=== PATIENT | female | born 1965 | race Hispanic/Latino ===

== ENCOUNTER 2017-02-28 11:44 | Inpatient (IN) | payer MEDICAID, OTHER ==
[2017-02-28] MEDS ORDERED: Lidocaine 2% Inj (20ml) ONE (11:59)
[2017-02-28] MEDS ORDERED: Eptifibatide 0.75 mg/ml 100 ML IV ONE ×2 (11:59→12:16)
[2017-02-28] MEDS ORDERED: Eptifibatide 20 mg/10mL Inj IVP ONE ×2 (11:59→12:18)
[2017-02-28] MEDS ORDERED: Nitroglycerin 50mg in D5W 250 ML IV ONE (12:01)
[2017-02-28] MEDS ORDERED: Phenylephrine 10 mg/ml Inj ONE (12:01)
[2017-02-28] MEDS ORDERED: Iohexol 350mgl/ml 50 ML ONE (12:01)
[2017-02-28] MEDS ORDERED: Iodixanol 320 MG/ML 200 ML BOTTLE IV ONE (12:01)
--- NOTE | 2017-02-28 12:04 | ED PDOC ---
Arrival/HPI - General Chief Complaint: Chest Pain Time Seen by Provider: 02/28/17 12:02 Historian: Patient - History of Present Illness Narrative History of Present Illness (Text): 02/28/17 12:02 51 year old female smoker with a past medical history that includes diabetes presents to the emergency department with one day duration of chest pain. No ripping or tearing sensation or radiation to the back. Denies any shortness of breath with her symptoms. PMD: None Time/Duration: 24 hours Symptom Onset: Sudden Symptom Course: Unchanged Modifying Factors (Text): None Associated Symptoms (Text): None Past Medical History - Provider Review Nursing Documentation Reviewed: Yes - Infectious Disease Hx of Infectious Diseases: None - Tetanus Immunization Tetanus Immunization: Unknown - Past Medical History Past Medical History: No Previous - Cardiac Hx Cardiac Disorders: No (pt denies) - Pulmonary Hx Respiratory Disorders: No - Neurological Hx Neurological Disorder: No - HEENT Hx HEENT Disorder: No - Renal Hx Renal Disorder: No - Endocrine/Metabolic Hx Endocrine Disorders: Yes Hx Diabetes Mellitus Type 2: Yes - Hematological/Oncological Hx Blood Disorders: No - Integumentary Hx Dermatological Disorder: No - Musculoskeletal/Rheumatological Hx Musculoskeletal Disorders: No Hx Falls: No - Gastrointestinal Hx Gastrointestinal Disorders: No - Genitourinary/Gynecological Hx Genitourinary Disorders: No - Psychiatric Hx Psychophysiologic Disorder: No Hx Anxiety: No Hx Depression: No Hx Emotional Abuse: No Hx Physical Abuse: No Hx Substance Use: No - Past Surgical History Past Surgical History: No Previous - Suicidal Assessment Feels Threatened In Home Enviroment: No Family/Social History - Physician Review Nursing Documentation Reviewed: Yes Family/Social History: Unknown Family HX Smoking Status: Light Smoker < 10 Cigarettes Daily Hx Alcohol Use: No Hx Substance Use: No Allergies/Home Meds Allergies/Adverse Reactions: Allergies No Known Allergies Allergy (Verified 02/28/17 12:00) Home Medications: Home Meds Medication Instructions Recorded Confirmed No Known Home Med 02/28/17 02/28/17 Review of Systems - Physician Review All systems were reviewed & negative as marked: Yes Physical Exam - Physical Exam Narrative Physical Exam (Text): - Review of Systems Constitutional: Normal. absent: Fatigue, Weight Change, Fevers Eyes: Normal ENT: Normal Respiratory: Normal absent: SOB, Cough, Sputum Cardiovascular: Chest pain absent: Palpitations, Syncope Gastrointestinal: Normal absent: Abdominal pain, Diarrhea, Nausea, Vomiting Genitourinary: Normal. absent: Dysuria, Frequency, Hematuria Musculoskeletal: Normal. absent: Arthralgias, Back Pain, Neck Pain Skin: Normal Neurological: Normal absent: Focal Weakness Endocrine: Normal Hemo/Lymphatic: Normal Psychiatric: Normal - Physical exam Patient appears age appropriate, speaking full sentences without difficulty - Systems Exam Head: Present: Atraumatic, Normocephalic Pupils: Present: PERRL Extraocular Muscles: Present: EOMI Conjunctiva: Present: Normal Mouth: Present: Moist Mucous Membranes Neck: Present: Normal Range of Motion. No: MIDLINE TENDERNESS, Paraspinal Tenderness Respiratory/Chest: Present: Clear to Auscultation, Good Air Exchange. No: Respiratory Distress, Accessory Muscle Use, Tachypneic Cardiovascular: Present: Regular Rate and Rhythm, Normal S1, S2, Peripheral Pulses Present. No: Murmurs Abdomen: Present: Normal Bowel Sounds, No: Tenderness, Peritoneal Signs, Rebound, Guarding, Distention Back: Present: Normal Inspection. No: Midline Tenderness, Paraspinal Tenderness Upper Extremity: Present: Normal Inspection. No: Cyanosis, Edema Lower Extremity: Present: Normal Inspection. No: Edema Neurological: Present: GCS=15, Speech Normal, cranial nerves II through XII fully intact with no cerebellar abnormality, neuro-sensory fully intact. No focal neurological deficits. Skin: Present: Warm, Dry, Normal Color. No: Rashes Lymphatic: Present: OX3, NI, NC Psychiatric: Present: Alert, Oriented x 3, Normal Insight, Normal Concentration Vital Signs Reviewed: Yes Vital Signs Temp Pulse Resp BP Pulse Ox 02/28/17 11:58 98 F 115 H 17 124/55 L 98 Temperature: Afebrile Blood Pressure: Normal Pulse: Tachycardic Respiratory Rate: Normal Appearance: Positive for: Well-Appearing, Non-Toxic, Comfortable Pain Distress: None Mental Status: Positive for: Alert and Oriented X 3 Medical Decision Making ED Course and Treatment: Impression: 51 year old female smoker with a history of diabetes presents with 1 day duration chest pain. Differential Diagnosis include but are not limited to: [place] Plan: -- EKG, Chest X-ray -- Labs -- Reassess and disposition Prior Visits: Notes and results from previous visits were reviewed. Patient last seen in the ED on 10/10/14 with left arm pain and discharged home. Progress Notes: EKG was done at 11:50, which shows sinus rhythm at [address] elevations in V1 and V2, q-waves, reciprocal changes in inferior leads, interpreted by me. EKG signed at 11:50. Code Heart called at 11:50. Case discussed with Dr. Hollis at 11:53 who states to administer Aspirin, Nitro, Heparin, Integrilin, Plavix Patient informed of diagnosis and plan. Case discussed with patient's daughter per her request. Patient states she has no PMD. Chest x-ray read by me shows no pneumothorax, no pneumonia, no cardiomegaly, no infiltrates. Case discussed with Dr. Desir who accepts patient to his service. - Critical Care Critical Care Minutes: 30 minutes - Lab Interpretations Lab Results: 02/28/17 11:56 02/28/17 11:56 Lab Results 02/28/17 11:56: WBC 9.1, RBC 5.25, Hgb 15.0, Hct 42.2, MCV 80.4, MCH 28.6, MCHC 35.5, RDW 14.1, Plt Count 249, MPV 9.8, PT 10.2, INR 0.94, APTT 26.9, Sodium 133 , Potassium 4.5, Chloride 96 L, Carbon Dioxide 29, Anion Gap 13, BUN 14, Creatinine 0.7, Est GFR ( Amer) > 60, Est GFR (Non-Af Amer) > 60, Random Glucose 403 H* D, Calcium 9.5, Total Bilirubin 0.7, AST 20, ALT 11, Alkaline Phosphatase 70, Lactate Dehydrogenase 337, Total Creatine Kinase 60, Troponin I 0.06, Total Protein 7.7, Albumin 4.2, Globulin 3.5, Albumin/Globulin Ratio 1.2, Triglycerides 477 H, Cholesterol 263 H, LDL Cholesterol Direct 149 H, HDL Cholesterol 40 - RAD Interpretation Radiology Orders: 02/28/17 11:56 CHEST ONE VIEW [RAD] Stat - EKG Interpretation Interpreted by ED Physician: Yes Type: 12 lead EKG - Medication Orders Current Medication Orders: Acetaminophen (Tylenol 325mg Tab) 650 mg PO Q4H PRN PRN Reason: FOR PAIN Alprazolam (Xanax) 0.25 mg PO BID PRN PRN Reason: Anxiety Stop: 03/07/17 14:10 Aspirin (Ecotrin) 81 mg PO DAILY [facility] Atorvastatin Calcium (Lipitor) 80 mg PO DIN [facility] Clopidogrel Bisulfate (Plavix) 75 mg PO DAILY [facility] Docusate Sodium (Colace) 100 mg PO BID [facility] Eptifibatide (Integrilin) 100 mls @ 12.383 mls/hr IV .Q8H5M [facility]; 2 MCG/KG/MIN PRN Reason: Protocol Stop: 03/01/17 06:00 Last Admin: 02/28/17 14:27 Dose: 12.383 MLS/HR eMAR Start Stop Document 02/28/17 14:27 [id number] (Rec: 02/28/17 14:28 [id number]) Intravenous Solution Start Date 02/28/17 Start Time 12:00 Sodium Chloride (Sodium Chloride 0.9%) 1,000 mls @ 100 mls/hr IV .Q10H [facility] Stop: 02/28/17 23:55 Last Admin: 02/28/17 14:28 Dose: 100 MLS/HR eMAR Start Stop Document 02/28/17 14:28 [email or web address] (Rec: 02/28/17 14:28 [id number]) Intravenous Solution Start Date 02/28/17 Start Time 14:28 End Date 02/28/17 Insulin Human Lispro (Humalog Med) 0 units SC ACHS [facility] PRN Reason: Protocol Metoprolol Tartrate (Lopressor) 25 mg PO BID [facility] Ramipril (Altace) 1.25 mg PO DAILY [facility] Zolpidem Tartrate (Ambien) 5 mg PO HS PRN PRN Reason: Insomnia Discontinued Medications Aspirin (Aspirin Chewable) Confirm Administered Dose 324 mg .ROUTE .STK-MED ONE Stop: 02/28/17 12:01 Clopidogrel Bisulfate (Plavix) Confirm Administered Dose 600 mg .ROUTE .STK-MED ONE Stop: 02/28/17 12:00 Eptifibatide (Integrilin Bolus) Confirm Administered Dose 20 mg IVP .STK-MED ONE Stop: 02/28/17 12:00 Eptifibatide (Integrilin Bolus) Confirm Administered Dose 20 mg IVP .STK-MED ONE Stop: 02/28/17 12:19 Fentanyl (Fentanyl) Confirm Administered Dose 100 mcg .ROUTE .STK-MED ONE Stop: 02/28/17 12:09 Heparin Sodium (Porcine) (Heparin) Confirm Administered Dose 5,000 units .ROUTE .STK-MED ONE Stop: 02/28/17 12:01 Heparin Sodium (Porcine) (Heparin) Confirm Administered Dose 10,000 units .ROUTE .STK-MED ONE Stop: 02/28/17 12:01 Eptifibatide (Integrilin) Confirm Administered Dose 100 mls @ ud IV .STK-MED ONE Stop: 02/28/17 12:00 Heparin Sodium (Porcine) (Heparin 1000 Units/500 Ml Ns) Confirm Administered Dose 1,500 mls @ ud IV .STK-MED ONE Stop: 02/28/17 12:01 Nitroglycerin/Dextrose (Nitroglycerin 50 Mg/250 Ml D5w) Confirm Administered Dose 250 mls @ ud IV .STK-MED ONE Stop: 02/28/17 12:02 Eptifibatide (Integrilin) Confirm Administered Dose 100 mls @ ud IV .STK-MED ONE Stop: 02/28/17 12:17 Heparin Sodium (Porcine) (Heparin 1000 Units/500 Ml Ns) Confirm Administered Dose 500 mls @ ud IV .STK-MED ONE Stop: 02/28/17 13:00 Iodixanol (Visipaque 320 Mg/Ml 200 Ml) Confirm Administered Dose 200 ml IV .STK- MED ONE Stop: 02/28/17 12:02 Iodixanol (Visipaque 320 Mg/Ml 100 Ml) Confirm Administered Dose 100 ml IV .STK- MED ONE Stop: 02/28/17 13:07 Iodixanol (Visipaque 320 Mg/Ml 100 Ml) Confirm Administered Dose 100 ml IV .STK- MED ONE Stop: 02/28/17 13:28 Iohexol (Omnipaque 350mg/Ml 50 Ml) Confirm Administered Dose 50 ml .ROUTE .STK- MED ONE Stop: 02/28/17 12:02 Lidocaine HCl (Lidocaine 2% 20ml Vial) Confirm Administered Dose 20 ml .ROUTE .STK-MED ONE Stop: 02/28/17 12:00 Midazolam HCl (Versed Inj) Confirm Administered Dose 2 mg .ROUTE .STK-MED ONE Stop: 02/28/17 12:09 Morphine Sulfate (Morphine) Confirm Administered Dose 2 mg .ROUTE .STK-MED ONE Stop: 02/28/17 12:39 Nitroglycerin (Nitrostat Sl Tab) Confirm Administered Dose 0.4 mg SL .STK-MED ONE Stop: 02/28/17 12:06 Phenylephrine HCl (Phenylephrine Inj) Confirm Administered Dose 10 mg .ROUTE .STK-MED ONE Stop: 02/28/17 12:02 Verapamil HCl (Verapamil Inj) Confirm Administered Dose 5 mg IVP .STK-MED ONE Stop: 02/28/17 12:25 - Scribe Statement The provider has reviewed the documentation as recorded by the Kal Peter Provider Scribe Attestation: All medical record entries made by the Kal were at my direction and personally dictated by me. I have reviewed the chart and agree that the record accurately reflects my personal performance of the history, physical exam, medical decision making, and the department course for this patient. I have also personally directed, reviewed, and agree with the discharge instructions and disposition. Disposition/Present on Arrival - Present on Arrival Any Indicators Present on Arrival: No History of DVT/PE: No History of Uncontrolled Diabetes: No Urinary Catheter: No History of Decub. Ulcer: No History Surgical Site Infection Following: None - Disposition Have Diagnosis and Disposition been Completed?: Yes Diagnosis: Acute myocardial infarction Disposition: HOSPITALIZED Disposition Time: 12:06 Patient Plan: Admission Condition: CRITICAL
[2017-02-28] MEDS ORDERED: Midazolam 2 MG/2 ML VIAL ONE (12:08)
[2017-02-28 12:09] LABS: HEMATOCRIT 42.2 % (36.0-48.0); MEAN CELL VOLUME 80.4 fL (80.0-105.0); MEAN CORPUSCULAR HEMOGLOBIN 28.6 pg (25.0-35.0); MEAN CORPUSCULAR HGB CONC 35.5 g/dl (31.0-37.0); MEAN PLATELET VOLUME 9.8 fl (7.0-11.0); RED CELL DISTRIBUTION WIDTH 14.1 % (11.5-14.5); WHITE BLOOD COUNT 9.1 10^3/ul (4.5-11.0)
[2017-02-28 12:18] LABS: ALB/GLOB RATIO 1.2 (1.1-1.8); ALKALINE PHOSPHATASE 70 U/L (38-133); ALT/SGPT 11 U/L (7-56); AST/SGOT 20 U/L (15-39); BILIRUBIN,TOTAL 0.7 mg/dL (0.2-1.3); BLOOD UREA NITROGEN 14 mg/dL (7-21); CALCIUM 9.5 mg/dL (8.4-10.5); CARBON DIOXIDE 29 mmol/L (21-33); CHLORIDE 96 mmol/L (98-107); CHOLESTEROL 263 mg/dL (130-200); GFR AFRICAN-AMERICAN > 60; POTASSIUM 4.5 mmol/L (3.6-5.0); SODIUM 133 mmol/L (132-148); TOTAL PROTEIN 7.7 g/dL (5.8-8.3)
--- NOTE | 2017-02-28 12:19 | RAD ---
PROCEDURE: CHEST RADIOGRAPH, 1 VIEW HISTORY: CODE STEMI COMPARISON: None available. FINDINGS: LUNGS: Clear. PLEURA: No pneumothorax or pleural fluid seen. CARDIOVASCULAR: Normal. OSSEOUS STRUCTURES: No significant abnormalities. VISUALIZED UPPER ABDOMEN: Normal. OTHER FINDINGS: None. IMPRESSION: No active disease.
[2017-02-28 12:20] LABS: INR 0.94 (0.93-1.08); PARTIAL THROMBOPLASTIN TIME 26.9 Seconds (23.7-30.8)
[2017-02-28 12:21] LABS: GLUCOSE,RANDOM 403 mg/dL (70-110)
[2017-02-28 12:29] LABS: TROPONIN I 0.06 ng/mL
--- NOTE | 2017-02-28 12:35 | CP.PCM.PN ---
Subjective - Date & Time of Evaluation Date of Evaluation: 02/28/17 Time of Evaluation: 11:51 - Subjective Subjective: Responded stat to "code heart in the ER" Patient was evaluated in the ER.,work up revealed Acute ND. After iinitial treatment in the ER,with cardiac moniter and O2 in place, she was transferred to the vascular lab by staff from the ER and myself. Case endorsed to lab head staff.Dr Hollis is in to do the procedure. Objective - Vital Signs/Intake and Output Vital Signs (last 24 hours): Temp Pulse Resp BP Pulse Ox 98 F 115 H 17 124/55 L 98 02/28/17 11:58 02/28/17 11:58 02/28/17 11:58 02/28/17 11:58 02/28/17 11:58 - Labs Labs: 02/28/17 11:56
[2017-02-28] MEDS ORDERED: Morphine 2 mg/ml ISec ONE (12:38)
[2017-02-28] MEDS ORDERED: Iodixanol 320 MG/ML 100 ML BOTTLE IV ONE ×2 (13:06→13:27)
[2017-02-28] MEDS ORDERED: Sodium Chloride 0.9% 1,000 ML IV SCH (14:15)
[2017-02-28 14:26] LABS: ADD MANUAL DIFF? NO
[2017-02-28] MEDS: Eptifibatide 0.75 mg/ml 100 ML IV SCH ×2 (14:27→19:00)
[2017-02-28 14:29] LABS: BASO # 0.03 K/mm3 (0.0-2.0); BASO % 0.3 % (0.0-3.0); EOS # 0.1 (0.0-0.7); EOS % 1.1 % (1.5-5.0); GRAN # 6.15 (1.4-6.5); GRAN % 68.7 % (50.0-68.0); HEMATOCRIT 37.6 % (36.0-48.0); LYMPH # 2.2 (1.2-3.4); MEAN CELL VOLUME 80.3 fL (80.0-105.0); MEAN CORPUSCULAR HEMOGLOBIN 28.4 pg (25.0-35.0); MEAN CORPUSCULAR HGB CONC 35.4 g/dl (31.0-37.0); MEAN PLATELET VOLUME 9.7 fl (7.0-11.0); MONO # 0.5 (0.1-0.6); MONO % 5.9 % (1.0-6.0); PLATELET COUNT 246 10^3/uL (120.0-450.0); RED CELL DISTRIBUTION WIDTH 14.1 % (11.5-14.5)
[2017-02-28 14:38] LABS: BLOOD UREA NITROGEN 12 mg/dL (7-21); CALCIUM 8.4 mg/dL (8.4-10.5); CARBON DIOXIDE 26 mmol/L (21-33); CHLORIDE 100 mmol/L (98-107); GFR AFRICAN-AMERICAN > 60; POTASSIUM 4.4 mmol/L (3.6-5.0); SODIUM 133 mmol/L (132-148)
[2017-02-28 14:43] LABS: GLUCOSE,RANDOM 304 mg/dL (70-110)
--- NOTE | 2017-02-28 15:03 | CON ---
DATE: 02/28/2017 SERVICE: Cardiology. CONSULTING PHYSICIAAN: Dr. Mare Hollis. REASON FOR CONSULTATION: Code STEMI, ST elevation in anterior leads with reciprocal ST depression. BRIEF CLINICAL HISTORY: This is a 51-year-old diabetic female with past medical history significant for diabetes admitted with chest pain 2 days' duration off and on. This morning, chest pain started at 10:00, so the patient decided to come to the Emergency Room. The patient came around 12:00. EKG showed ST segment elevation anterior wall with reciprocal ST depression. Code STEMI was activated. The patient denies any significant history except she said that had diabetes and supposed to take uma betic medication, but the patient was not taking. She does not have any primary care. She does not follow with a doctor regularly. REVIEW OF SYSTEMS: As per HPI. PAST MEDICAL HISTORY: Diabetic. SOCIAL HISTORY: Currently active tobacco abuse. EKG showed normal sinus, ST elevation in anterior lead with reciprocal ST depression in inferior lead . LABORATORY DATA: Blood workup as follows: WBC 9.1, hemoglobin 15, hematocrit 42.2, platelet count 2 49. Chemistry shows sodium 130, potassium 4.1, chloride 96, carbon dioxide 29, anion gap of 13, BUN 14, creatinine ____. Triglyceride 477. LDL, cholesterol is pending. IMPRESSION: Acute code ST-elevation myocardial infarction. I was in the middle of the case doing a complex PTCA. Emergency Room called. The patient was a code ST-elevation myocardial infarction, so I told them to give 5000 heparin bolus, 600 Plavix and Integrilin, then we will take the patient to [facility]. The patient was seen on the cath table. Discussed risks, benefits, alternatives, discu ssed and explained to the patient. We will proceed for cardiac catheterization. Further recommendat ion after cardiac catheterization. We will follow with you. Thank you, Dr. Ruff, for providing us the opportunity in taking care of the patient. Mare Hollis MD cc: [id number] TT: 02/28/2017 15:02:07 Confirmation # [id number] Dictation # [id number]
--- NOTE | 2017-02-28 15:05 | CP.CCUPN ---
<Ree Kline - Last Filed: 02/28/17 14:55> CCU Subjective - Physician Review Events Since Last Encounter (Free Text): 02/28/17 14:55 HPI: 51 yo F w h/o NIDDM2, HTN, HLD presented to ED with c/o substernal heavy chest pain radiating to her back onset while she was sitting at work. Patient states she has been in her normal state of health with no complaints though she ran out of her medications approximately 1 month ago and has been unable to get new prescriptions due to lapse in insurance. Patient states she was sitting at work, drinking a soda when she suddenly felt substernal heavy chest pain radiating to her back, mild nausea and mild dizziness. Patient denied any SOB, abd pain, vomiting, headache, sweating, palpitations. In ER, EKG showed ST elevations in V1 and V2, q waves and reciprocal changes in inferior leads. Code heart was called, patient was given ASA, Nitro, Plavix, Integrillin and heparin bolus and taken to label tacker for emergent PCI. One PRAFUL was placed in LAD and 2 PRAFUL in RCA. Patient is subsequently admitted to ICU for observation and post-cardiac vascular checks. Patient denies any current CP or back pain and states the pain she felt earlier this morning prior to presentation is completely resolved at this time. Patient currently denies SOB, abd pain, n/v, fevers, chills, dizziness, headache. PMHx: NIDDM2, HTN, HLD, DM neuropathy, medical noncompliance PSHx: tubal ligation FamilyHx: mom had Parkinson's disease and CVA. Dad had CAD, NC, HTN, Kidney disease on HD SocialHx: Smokes 1.5 packs per week x 30 years, Social EtOH, has not had a drink in 2.5 years, Denies h/o drug use. Works at [employer]. Allergies: NKDA HomeMeds: Gabapentin, Metformin, Glimepiride, atorvastatin (patient ran out of meds 1 month ago) Critical Care Time Spent (in minutes): 50 CCU Objective - Physical Exam Narrative Physical Exam (Free Text): 02/28/17 15:26 pleasant female, NAD Physical Exam Limitations: Negative for: Altered Mental Status Head: Positive for: Atraumatic, Normocephalic Pupils: Positive for: PERRL Extroacular Muscles: Positive for: EOMI Conjunctiva: Positive for: Normal Ears: Positive for: Normal Mouth: Positive for: Moist Mucous Membranes. Negative for: Normal Teeth (poor dentition) Nose (External): Positive for: Atraumatic Nose (Internal): Positive for: Normal Inspection Neck: Positive for: Normal Range of Motion Respiratory/Chest: Positive for: Clear to Auscultation, Good Air Exchange. Negative for: Respiratory Distress, Accessory Muscle Use, Wheezes Cardiovascular: Positive for: Regular Rate and Rhythm, Murmurs (2/6 systolic RSB ), Normal S1, S2, Peripheal Pulses Present (1+ BL posterior tibial, 1+ BL dorsalis pedis). Negative for: Irregular Rhythm, Tachycardic Abdomen: Positive for: Normal Bowel Sounds. Negative for: Tenderness, Distention, Peritoneal Signs, Rebound, Guarding, Other (No inguinal hematomas post-cath) Upper Extremity: Positive for: Normal Inspection, Capillary Refill < 2s. Negative for: Cyanosis, Edema Lower Extremity: Positive for: Normal Inspection. Negative for: Edema, CALF TENDERNESS, NORMAL PULSES (Diminished 1+ BL DP and PT), Cyanosis, Phylicia's Sign, Tenderness, Erythema Neurological: Positive for: GCS=15, CN II-XII Intact, Speech Normal Skin: Positive for: Warm, Dry, Rashes, Normal Color. Negative for: Diaphoretic Psychiatric: Positive for: Alert, Oriented x 3, Normal Insight, Normal Concentration - Medications Active Medications: Active Medications Generic Name Dose Route Start Last Admin Trade Name Freq PRN Reason Stop Dose Admin Acetaminophen 650 mg 02/28/17 14:09 Tylenol 325mg Tab PO Q4H PRN FOR PAIN Alprazolam 0.25 mg 02/28/17 14:09 Xanax PO 03/07/17 14:10 BID PRN Anxiety Aspirin 81 mg 03/01/17 10:00 Ecotrin PO DAILY [facility] Atorvastatin Calcium 80 mg 02/28/17 17:00 Lipitor PO DIN [facility] Clopidogrel Bisulfate 75 mg 03/01/17 10:00 Plavix PO DAILY [facility] Docusate Sodium 100 mg 02/28/17 18:00 Colace PO BID [facility] Eptifibatide 100 mls @ 12.383 mls/hr 02/28/17 14:15 02/28/17 14:27 Integrilin IV 03/01/17 06:00 12.383 mls/hr .Q8H5M [facility] Administration Protocol 2 MCG/KG/MIN Sodium Chloride 1,000 mls @ 100 mls/hr 02/28/17 14:15 02/28/17 14:28 Sodium Chloride 0.9% IV 02/28/17 23:55 100 mls/hr .Q10H [facility] Administration Insulin Human Regular 0 units 02/28/17 16:30 Humulin R Low SC ACHS [facility] Protocol Metoprolol Tartrate 25 mg 02/28/17 18:00 Lopressor PO BID [facility] Ramipril 1.25 mg 03/01/17 10:00 Altace PO DAILY [facility] Zolpidem Tartrate 5 mg 02/28/17 14:09 Ambien PO HS PRN Insomnia - Patient Studies Lab Studies: Lab Studies 02/28/17 Range/Units 14:20 WBC 9.0 (4.5-11.0) 10^3/ul RBC 4.68 (3.5-6.1) 10^6/uL Hgb 13.3 (12.0-16.0) gm/dL Hct 37.6 (36.0-48.0) % MCV 80.3 (80.0-105.0) fL MCH 28.4 (25.0-35.0) pg MCHC 35.4 (31.0-37.0) g/dl RDW 14.1 (11.5-14.5) % Plt Count 246 (120.0-450.0) 10^3/uL MPV 9.7 (7.0-11.0) fl Gran % 68.7 H (50.0-68.0) % Lymph % (Auto) 24.0 (22.0-35.0) % [place] % (Auto) 5.9 (1.0-6.0) % Eos % (Auto) 1.1 L (1.5-5.0) % Baso % (Auto) 0.3 (0.0-3.0) % Gran # 6.15 (1.4-6.5) Lymph # 2.2 (1.2-3.4) [place] # 0.5 (0.1-0.6) Eos # 0.1 (0.0-0.7) Baso # 0.03 (0.0-2.0) K/mm3 Sodium 133 (132-148) mmol/L Potassium 4.4 (3.6-5.0) mmol/L Chloride 100 (98-107) mmol/L Carbon Dioxide 26 (21-33) mmol/L Anion Gap 11 (10-20) BUN 12 (7-21) mg/dL Creatinine 0.7 (0.5-1.4) mg/dL Est GFR ( Amer) > 60 Est GFR (Non-Af Amer) > 60 Random Glucose 304 H* D (70-110) mg/dL Calcium 8.4 (8.4-10.5) mg/dL Lactate Dehydrogenase 304 L (333-699) U/L Total Creatine Kinase 170 (35-230) U/L Laboratory Results - last 24 hr 02/28/17 14:20 WBC 9.0 RBC 4.68 Hgb 13.3 Hct 37.6 MCV 80.3 MCH 28.4 MCHC 35.4 RDW 14.1 Plt Count 246 MPV 9.7 Gran % 68.7 H Lymph % (Auto) 24.0 [place] % (Auto) 5.9 Eos % (Auto) 1.1 L Baso % (Auto) 0.3 Gran # 6.15 Lymph # 2.2 [place] # 0.5 Eos # 0.1 Baso # 0.03 Sodium 133 Potassium 4.4 Chloride 100 Carbon Dioxide 26 Anion Gap 11 BUN 12 Creatinine 0.7 Est GFR ( Amer) > 60 Est GFR (Non-Af Amer) > 60 Random Glucose 304 H* D Calcium 8.4 Lactate Dehydrogenase 304 L Total Creatine Kinase 170 EKG/Cardiology Studies: Cardiology / EKG Studies 02/28/17 14:08 ELECTROCARDIOGRAM Urgent Comment: 12 lead EKG upon arrival in unit Reason For Exam: post ptca 03/01/17 07:00 ELECTROCARDIOGRAM Routine Comment: s/P ptca Reason For Exam: CAD PRE OP:: N Does Patient Have a Pacemaker?: No 03/01/17 14:15 ELECTROCARDIOGRAM DAILY Comment: Reason For Exam: chest pain Review of Systems - Constitutional Constitutional: absent: Fever, Chills - EENT Eyes: absent: Blurred Vision, Change in Vision, Diplopia Ears: absent: Dizziness - Cardiovascular Cardiovascular: absent: Chest Pain, Chest Pain at Rest, Diaphoresis, Dyspnea, Edema, Palpitations - Respiratory Respiratory: absent: Cough, Dyspnea, Pain on Inspiration - Gastrointestinal Gastrointestinal: absent: Abdominal Pain, Diarrhea, Nausea, Vomiting - Genitourinary Genitourinary: absent: Dysuria - Musculoskeletal Musculoskeletal: absent: Back Pain - Integumentary Integumentary: absent: New Lesions, Rash - Neurological Neurological: absent: Focal Weakness, Headaches, Loss of Vision, Vertigo - Endocrine Endocrine: absent: Palpitations Critical Care Progress Note - Nutrition Nutrition: Nutrition Category Date Time Status Heart Healthy Diet [DIET] Diets 02/28/17 Dinner Ordered Assessment/Plan - Assessment and Plan (Free Text) Assessment: 51 yo F w h/o NIDDM2, HTN, HLD, medical noncompliance admitted with anterior STEMI now s/p emergent catheterization requiring 3 PRAFUL (1 to LAD, 2 to RCA) Plan: Neuro: AAOx3, NAD Maintain normothermia CV: s/p code heart Anterior STEMI requiring emergent PCI, one PRAFUL to LAD, 2 PRAFUL to RCA Trend troponins ST elevations seen on original EKG now resolved on subsequent EKG. Serial EKGs as per cardio Continue integrillin drip as ordered by cardiology ASA, Plavix, Lipitor, Lopressor, Ramipril Post-cath vascular checks Maintain MAP >65 Significant hypertriglyceridemia (477), hypercholesterolemia (263) - Continue Lipitor. Extensively counseled patient regarding immediate dietary and exercise regimen adherence, smoking cessation Pulm: No acute issues. Patient comfortable on NC Maintain spo2>90 GI: HHD diet Renal: No acute issues. Continue monitoring renal function, I&Os Endo: Lispro Medium SSI, ACHS accuchecks Maintain euglycemia 140-180. Adjust regimen as needed Followup A1C ID: No leukocytosis, afebrile. Continue to monitor. Heme: No acute issues. Continue to monitor for signs of bleeding at post-op sites DVT/GI ppx - Date & Time Date: 02/28/17 Time: 15:43 <Regis Mendoza - Last Filed: 02/28/17 16:10> CCU Objective - Vital Signs / Intake & Output Vital Signs (Last 4 hours): Vital Signs Temp Pulse Resp BP Pulse Ox 02/28/17 15:16 88 17 114/67 98 02/28/17 15:11 89 16 109/65 99 02/28/17 15:01 90 95/55 L 100 02/28/17 15:00 92 H 13 100 02/28/17 14:53 98 F 02/28/17 14:45 89 22 138/75 100 02/28/17 14:30 90 11 L 118/72 99 02/28/17 14:26 92 H 14 133/74 100 02/28/17 14:16 88 02/28/17 14:10 98 F Intake and Output (Last 8hrs): Intake & Output 02/28/17 02/28/17 02/28/17 06:59 14:59 22:59 Other: Voiding Method Bedpan - Medications Active Medications: Active Medications Generic Name Dose Route Start Last Admin Trade Name Freq PRN Reason Stop Dose Admin Acetaminophen 650 mg 02/28/17 14:09 Tylenol 325mg Tab PO Q4H PRN FOR PAIN Alprazolam 0.25 mg 02/28/17 14:09 Xanax PO 03/07/17 14:10 BID PRN Anxiety Aspirin 81 mg 03/01/17 10:00 Ecotrin PO DAILY [facility] Atorvastatin Calcium 80 mg 02/28/17 17:00 Lipitor PO DIN [facility] Clopidogrel Bisulfate 75 mg 03/01/17 10:00 Plavix PO DAILY [facility] Docusate Sodium 100 mg 02/28/17 18:00 Colace PO BID [facility] Eptifibatide 100 mls @ 12.383 mls/hr 02/28/17 14:15 02/28/17 14:27 Integrilin IV 03/01/17 06:00 12.383 mls/hr .Q8H5M [facility] Administration Protocol 2 MCG/KG/MIN Sodium Chloride 1,000 mls @ 100 mls/hr 02/28/17 14:15 02/28/17 14:28 Sodium Chloride 0.9% IV 02/28/17 23:55 100 mls/hr .Q10H [facility] Administration Insulin Human Lispro 0 units 02/28/17 16:30 Humalog Med SC ACHS [facility] Protocol Metoprolol Tartrate 25 mg 02/28/17 18:00 Lopressor PO BID [facility] Ramipril 1.25 mg 03/01/17 10:00 Altace PO DAILY [facility] Zolpidem Tartrate 5 mg 02/28/17 14:09 Ambien PO HS PRN Insomnia - Patient Studies Lab Studies: Lab Studies 02/28/17 Range/Units 14:20 WBC 9.0 (4.5-11.0) 10^3/ul RBC 4.68 (3.5-6.1) 10^6/uL Hgb 13.3 (12.0-16.0) gm/dL Hct 37.6 (36.0-48.0) % MCV 80.3 (80.0-105.0) fL MCH 28.4 (25.0-35.0) pg MCHC 35.4 (31.0-37.0) g/dl RDW 14.1 (11.5-14.5) % Plt Count 246 (120.0-450.0) 10^3/uL MPV 9.7 (7.0-11.0) fl Gran % 68.7 H (50.0-68.0) % Lymph % (Auto) 24.0 (22.0-35.0) % [place] % (Auto) 5.9 (1.0-6.0) % Eos % (Auto) 1.1 L (1.5-5.0) % Baso % (Auto) 0.3 (0.0-3.0) % Gran # 6.15 (1.4-6.5) Lymph # 2.2 (1.2-3.4) [place] # 0.5 (0.1-0.6) Eos # 0.1 (0.0-0.7) Baso # 0.03 (0.0-2.0) K/mm3 Sodium 133 (132-148) mmol/L Potassium 4.4 (3.6-5.0) mmol/L Chloride 100 (98-107) mmol/L Carbon Dioxide 26 (21-33) mmol/L Anion Gap 11 (10-20) BUN 12 (7-21) mg/dL Creatinine 0.7 (0.5-1.4) mg/dL Est GFR ( Amer) > 60 Est GFR (Non-Af Amer) > 60 Random Glucose 304 H* D (70-110) mg/dL Calcium 8.4 (8.4-10.5) mg/dL Lactate Dehydrogenase 304 L (333-699) U/L Total Creatine Kinase 170 (35-230) U/L Troponin I 1.47 H* D ng/mL Laboratory Results - last 24 hr 02/28/17 14:20 WBC 9.0 RBC 4.68 Hgb 13.3 Hct 37.6 MCV 80.3 MCH 28.4 MCHC 35.4 RDW 14.1 Plt Count 246 MPV 9.7 Gran % 68.7 H Lymph % (Auto) 24.0 [place] % (Auto) 5.9 Eos % (Auto) 1.1 L Baso % (Auto) 0.3 Gran # 6.15 Lymph # 2.2 [place] # 0.5 Eos # 0.1 Baso # 0.03 Sodium 133 Potassium 4.4 Chloride 100 Carbon Dioxide 26 Anion Gap 11 BUN 12 Creatinine 0.7 Est GFR ( Amer) > 60 Est GFR (Non-Af Amer) > 60 Random Glucose 304 H* D Calcium 8.4 Lactate Dehydrogenase 304 L Total Creatine Kinase 170 Troponin I 1.47 H* D EKG/Cardiology Studies: Cardiology / EKG Studies 02/28/17 14:08 ELECTROCARDIOGRAM Urgent Comment: 12 lead EKG upon arrival in unit Reason For Exam: post ptca 03/01/17 07:00 ELECTROCARDIOGRAM Routine Comment: s/P ptca Reason For Exam: CAD PRE OP:: N Does Patient Have a Pacemaker?: No 03/01/17 14:15 ELECTROCARDIOGRAM DAILY Comment: Reason For Exam: chest pain Critical Care Progress Note - Nutrition Nutrition: Nutrition Category Date Time Status Heart Healthy Diet [DIET] Diets 02/28/17 Dinner Ordered Attending/Attestation - Attestation I have personally seen and examined this patient.: Yes I have fully participated in the care of the patient.: Yes I have reviewed all pertinent clinical information: Yes Notes (Text): 02/28/17 16:09 The patient was seen and examined at the bedside. Patient care was discussed with resident Medical records, lab studies, and imaging were reviewed and management issues were discussed and formulated. Agree with above treatment plans as outlined in 's note
[2017-02-28 15:51] LABS: TROPONIN I 1.47 ng/mL
--- NOTE | 2017-02-28 16:00 | CP.PCM.HP ---
<Kvng Avila - Last Filed: 02/28/17 15:51> History of Present Illness - History of Present Illness History of Present Illness: 51 year old female with past medical history of diabetes presented to ED with chest pain that began this morning. Pt states she suddenly developed chest pain that radiated to the back and b/l arms. Patient rates the pain as 40 out of 10. Pt initially thought it was gas pain, but once the pain did not subside pt drove to the hospital. Patient was determined to be experiencing STEMI as per EKG and was immediately taken to the catherization lab. Patient received 3 stents 1 in LAD, 2 in RCA. Patient is comfortable but tired as she rests in the ICU. Denies CP, SOB, N/V/D. PMH: DM Surgical Hx: None Family Hx: Father - [place], . Mother - Hx of cancer Social Hx: Former smoker, 1 pack per week. Admits to occasional alcohol use. Denies illicit drug use. Allergies: NKDA Medication: Glipizide, metformin, gabapentin, atorvastatin Present on Admission - Present on Admission Any Indicators Present on Admission: No Review of Systems - EENT Eyes: absent: Blurred Vision, Change in Vision - Cardiovascular Cardiovascular: absent: Chest Pain, Palpitations - Respiratory Respiratory: absent: Cough, Dyspnea - Gastrointestinal Gastrointestinal: absent: Diarrhea, Vomiting - Genitourinary Genitourinary: absent: Dysuria, Hematuria - Integumentary Integumentary: absent: Lesions, Rash - Neurological Neurological: absent: Syncope, Tingling - Hematologic/Lymphatic Hematologic: absent: Easy Bleeding, Easy Bruising Past Patient History - Infectious Disease Hx of Infectious Diseases: None - Tetanus Immunizations Tetanus Immunization: Unknown - Past Social History Smoking Status: Light Smoker < 10 Cigarettes Daily - CARDIAC Hx Cardiac Disorders: No (pt denies) - PULMONARY Hx Respiratory Disorders: No - NEUROLOGICAL Hx Neurological Disorder: No - HEENT Hx HEENT Problems: No - RENAL Hx Chronic Kidney Disease: No - ENDOCRINE/METABOLIC Hx Endocrine Disorders: Yes Hx Diabetes Mellitus Type 2: Yes - HEMATOLOGICAL/ONCOLOGICAL Hx Blood Disorders: No - INTEGUMENTARY Hx Dermatological Problems: No - MUSCULOSKELETAL/RHEUMATOLOGICAL Hx Musculoskeletal Disorders: No Hx Falls: No - GASTROINTESTINAL Hx Gastrointestinal Disorders: No - GENITOURINARY/GYNECOLOGICAL Hx Genitourinary Disorders: No - PSYCHIATRIC Hx Psychophysiologic Disorder: No Hx Anxiety: No Hx Depression: No Hx Emotional Abuse: No Hx Physical Abuse: No Hx Substance Use: No - SURGICAL HISTORY Hx Surgeries: No (pt denies) Meds Allergies/Adverse Reactions: Allergies Allergy/AdvReac Type Severity Reaction Status Date / Time No Known Allergies Allergy Verified 02/28/17 12:00 Physical Exam - Constitutional Appears: Well, No Acute Distress - Head Exam Head Exam: ATRAUMATIC, NORMAL INSPECTION, NORMOCEPHALIC - ENT Exam ENT Exam: Mucous Membranes Moist, Normal Exam - Neck Exam Neck exam: Positive for: Normal Inspection. Negative for: Lymphadenopathy - Respiratory Exam Respiratory Exam: Clear to Auscultation Bilateral, NORMAL BREATHING PATTERN. absent: Rhonchi, Wheezes - Cardiovascular Exam Cardiovascular Exam: RRR, +S1, +S2 - GI/Abdominal Exam GI & Abdominal Exam: Normal Bowel Sounds, Soft. absent: Tenderness - Exam Additional comments: Right groin with surgical dressing. Clean, dry, and intact. - Extremities Exam Extremities exam: Negative for: calf tenderness, pedal edema Additional comments: Left arm surgical site. Clean, dry, and intact - Neurological Exam Neurological exam: Alert, CN II-XII Intact, Oriented x3 - Psychiatric Exam Psychiatric exam: Normal Affect, Normal Mood - Skin Skin Exam: Intact, Normal Color, Warm Results - Vital Signs Recent Vital Signs: Last Vital Signs Temp 98 F 02/28/17 14:53 Pulse 88 02/28/17 15:16 Resp 17 02/28/17 15:16 BP 114/67 02/28/17 15:16 Pulse Ox 98 02/28/17 15:16 - Labs Result Diagrams: 02/28/17 14:20 02/28/17 14:20 Labs: Laboratory Results - last 24 hr 02/28/17 14:20 WBC 9.0 RBC 4.68 Hgb 13.3 Hct 37.6 MCV 80.3 MCH 28.4 MCHC 35.4 RDW 14.1 Plt Count 246 MPV 9.7 Gran % 68.7 H Lymph % (Auto) 24.0 [place] % (Auto) 5.9 Eos % (Auto) 1.1 L Baso % (Auto) 0.3 Gran # 6.15 Lymph # 2.2 [place] # 0.5 Eos # 0.1 Baso # 0.03 Sodium 133 Potassium 4.4 Chloride 100 Carbon Dioxide 26 Anion Gap 11 BUN 12 Creatinine 0.7 Est GFR ( Amer) > 60 Est GFR (Non-Af Amer) > 60 Random Glucose 304 H* D Calcium 8.4 Lactate Dehydrogenase 304 L Total Creatine Kinase 170 Troponin I 1.47 H* D Assessment & Plan - Assessment and Plan (Free Text) Plan: 51 y/o F with PMH of DM presents to the hospital for STEMI. Pt was immediately taken to the clinical lab clerk by Dr. Estrada. 2 stents were placed in the RCA and 1 in the LAD. Pt will be placed on ASA, plavix, integrillin, ramipril, atorvastatin and lopressor. Pt underwent echo, results pending. Lipid profile shows elevated triglycerids, LDL, and cholesterol. Will order A1c. Repeat EKG for tomorrow morning. Will evaluate pt in the AM. 1. STEMI - Continue ASA, plavix, integrillin, ramipril, atorvastatin and lopressor - Echocardiogram results pending - EKG tomorrow - Monitor for worsening of chest pain 2. DM - ISS - A1c pending - Monitor glucose levels 3. PPX - SCDs - Gwen Seen, reviewed, and discussed with attending [place] PGY-1 <Kathia Desir - Last Filed: 02/28/17 16:34> Results - Vital Signs Recent Vital Signs: Last Vital Signs Temp 98 F 02/28/17 14:53 Pulse 88 02/28/17 15:16 Resp 17 02/28/17 15:16 BP 114/67 02/28/17 15:16 Pulse Ox 98 02/28/17 15:16 - Labs Result Diagrams: 02/28/17 14:20 02/28/17 14:20 Labs: Laboratory Results - last 24 hr 02/28/17 02/28/17 14:20 16:07 WBC 9.0 RBC 4.68 Hgb 13.3 Hct 37.6 MCV 80.3 MCH 28.4 MCHC 35.4 RDW 14.1 Plt Count 246 MPV 9.7 Gran % 68.7 H Lymph % (Auto) 24.0 [place] % (Auto) 5.9 Eos % (Auto) 1.1 L Baso % (Auto) 0.3 Gran # 6.15 Lymph # 2.2 [place] # 0.5 Eos # 0.1 Baso # 0.03 Sodium 133 Potassium 4.4 Chloride 100 Carbon Dioxide 26 Anion Gap 11 BUN 12 Creatinine 0.7 Est GFR ( Amer) > 60 Est GFR (Non-Af Amer) > 60 POC Glucose (mg/dL) 243 H Random Glucose 304 H* D Calcium 8.4 Lactate Dehydrogenase 304 L Total Creatine Kinase 170 Troponin I 1.47 H* D Attending/Attestation - Attestation I have personally seen and examined this patient.: Yes I have fully participated in the care of the patient.: Yes I have reviewed all pertinent clinical information: Yes Notes (Text): 02/28/17 16:30 51 year old female with past medical history of diabetes and dyslipidemia who presented with complaint of chest pain. She was found to have STEMI and taken to the clinical lab clerk. She is s/p stents in the LAD and RCA. Continue with aspirin, plavix, statin, lopressor and ramipril. Will follow up echocardiogram. Lipid panel reviewed; she is on statin as above. Will monitor in ICU overnight and follow up with cardiology recommendations. Continue with insulin ss for diabetes. A1c level is ordered. Metformin is on hold post cath procedure. She was counselled on smoking abstinence. Family is also at bedside and questions were answered. Kathia Desir MD Hospitalist.
[2017-02-28] MEDS ORDERED: Insulin Reg-LOW-Coverage SC SCH (16:30)
[2017-02-28] MEDS ORDERED: Influenza Vaccine 45 MCG/0.5 ml IM ONE (17:23)
[2017-02-28] MEDS ORDERED: Pneumococcal 23-Valent Vaccine IM ONE (17:23)
[2017-02-28] MEDS: Insulin Lispro (humaLOG) MEDIUM Coverage SC SCH ×2 (17:35→22:33)
--- NOTE | 2017-02-28 18:22 | CARD ---
APPROVED REPORT EKG Measurement Heart [id number] <Conclusion> Normal sinus rhythm Possible Left atrial enlargement Cannot rule out Inferior infarct, age undetermined Abnormal ECG
--- NOTE | 2017-02-28 18:23 | CARD ---
APPROVED REPORT EKG Measurement Heart [id number] <Conclusion> Normal sinus rhythm with sinus arrhythmia Possible Left atrial enlargement Anteroseptal infarct, possibly acute ACUTE [place] Abnormal ECG
[2017-02-28] MEDS ORDERED: Bacitracin 500 Units/gm Oint Foilpak UD ONE (18:38)
--- NOTE | 2017-02-28 18:46 | CARD ---
APPROVED REPORT EXAM: Two-dimensional and M-mode echocardiogram with Doppler and color Doppler. INDICATION CP,STEMI,S/P PTCA 2D DIMENSIONS Left Atrium (2D)3.5 (1.6-4.0cm)IVSd1.4 (0.7-1.1cm) LVDd3.3 (3.9-5.9cm)PWd1.4 (0.7-1.1cm) LVDs2.4 (2.5-4.0cm)FS (%) 27.0 % LVEF (%)53.7 (>50%) M-Mode DIMENSIONS Aortic Root3.20 (2.2-3.7cm)Aortic Cusp Exc.1.60 (1.5-2.0cm) Aortic Valve AoV Peak Iczhtrwb572.0cm/sAoV VTI24.4cmAO Peak GR.6mmHg LVOT Peak Spdjnzul366.0cm/sLVOT VTI22.60cmAO Mean GR.3mmHg Mitral Valve MV E Xlqwskiz64.3cm/sMV A Bxxfmpsl61.7cm/sE/A ratio0.6 TDI Lateral E' Peak V4.29cm/sMedial E' Peak V3.41cm/sE/Lateral E'12.9 E/Medial E'16.2 Pulmonary Valve PV Peak Eecbomvl96.3cm/sPV Peak Grad.4mmHg Tricuspid Valve TR Peak Gxswwxsa630jh/sRAP WNYDLCTP00jgJoDB Peak Gr.10mmHg [id number] LEFT VENTRICLE The left ventricle is normal size. There is mild concentric left ventricular hypertrophy. The systolic function is mildly to moderately impaired.EF-35-40% There is moderate to severe hypokinesis in the apical anterior wall. The left ventricular diastolic function is normal. No left ventricle thrombus noted on this study. There is no ventricular septal defect visualized. There is no left ventricular aneurysm. There is no mass noted in the left ventricle. RIGHT VENTRICLE The right ventricle is normal size. There is normal right ventricular wall thickness. The right ventricular systolic function is normal. ATRIA The left atrium size is normal. The right atrium size is normal. The interatrial septum is intact with no evidence for an atrial septal defect. AORTIC VALVE The aortic valve is thickened but opens well. The aortic valve is mildly sclerotic. No aortic regurgitation is present. There is no aortic valvular stenosis. There is no aortic valvular vegetation. TRICUSPID VALVE The tricuspid valve leaflets are thickened , but open well. There is trace tricuspid regurgitation.RVSP-20 mmof Hg. There is no tricuspid valve stenosis. There is no tricuspid valve prolapse or vegetation. PULMONIC VALVE The pulmonary valve is normal in structure. There is no pulmonic valvular regurgitation. There is no pulmonic valvular stenosis. GREAT VESSELS The aortic root is normal in size. The ascending aorta is normal in size. The pulmonary artery is normal. The IVC is normal in size and collapses >50% with inspiration. PERICARDIAL EFFUSION There is no pleural effusion. There is no pericardial effusion. <Conclusion> Normal Chamber Size. Ef-35-40% There is moderate to severe hypokinesis in the apical anterior wall. There is trace tricuspid regurgitation.RVSP-20 mmof Hg. The IVC is normal in size and collapses >50% with inspiration. There is no pericardial effusion. Code STEMI, S/p Multi Vessel OTCA.
--- NOTE | 2017-02-28 20:15 | CARD ---
APPROVED REPORT Procedure(s) performed: Left Heart Catheterization PTCA with Stenting of Proximal LAD PTCA with Stenting of Distal RCA PTCA with Stenting of Mid RCA HISTORY The patient is a 51 year-old female with a history of : tobacco history() , hypertension , dyslipidemia , Non compliance with Meds, admitted with Code STEMI. INDICATION The indication(s) include : STEMI . CASE TECHNIQUE The patient was brought emergently to the Cardiac Catheterization Laboratory in a fasting state and was prepped and draped in a sterile manner. The left wrist was infiltrated with 2% Lidocaine subcutaneous anesthesia. A 6 Fr Glidesheath (Radial) sheath was inserted into the left radial artery without difficulty. Coronary angiography was performed using coronary diagnostic catheters. The left coronary system was accessed and visualized with a Guided XB3.0 catheter. The right coronary system was accessed and visualized with a Diagnostic JR 3.5,5FR catheter. The left ventricle was accessed and visualized with a Pig tail catheter. Left ventricular/Aortic Valve gradient assessed on pullback. Left ventriculogram was performed in LÓPEZ projection. Closure device was deployed with a Fr TR Band (Regular) without any complications. The patient tolerated the procedure well and there were no complications associated with the procedure. Cath started with Left Radial, but could not engaged left system so PTCA was done by RFA approach. Vessel Analysis The patient's coronary anatomy is co-dominant. The left main coronary artery is a medium size vessel with diffuse calcification noted throughout this vessel and without significant stenosis. The left anterior descending artery is a medium size vessel with diffuse calcification noted throughout this vessel and with significant stenosis. There is a 99% stenosis in the proximal segment. The first diagonal branch is a medium size vessel with diffuse calcification noted throughout this vessel and without significant stenosis. The second diagonal branch is a small size vessel with intimal irregularities and without significant stenosis. The circumflex artery is a medium size vessel with diffuse calcification noted throughout this vessel and without significant stenosis. The first obtuse marginal branch is a small size vessel with diffuse calcification noted throughout this vessel and without significant stenosis. The second obtuse marginal branch is a small size vessel with diffuse calcification noted throughout this vessel and without significant stenosis. The third obtuse marginal branch is a size vessel with diffuse calcification noted throughout this vessel and without significant stenosis. The left posterior descending artery is a medium size vessel . The right coronary artery is a medium size vessel with diffuse calcification noted throughout this vessel and with significant stenosis. There is a 90% stenosis in the distal segment. Mid RCA has 80% stenosis The right posterior descending artery is a medium size vessel with diffuse calcification noted throughout this vessel and without significant stenosis. Left Ventricle The left ventricle is enlarged in size with mild to moderately contractility. Ischemic cardiomyopathy. The left ventricular ejection fraction is estimated to be 35-40%. The left ventricular end diastolic pressure is 15 mmHg. There was no gradient across the aortic valve upon pullback. PCI Technique Lesion Anticoagulation was achieved with Heparin. Percutaneous coronary intervention was performed on the proximal left anterior descending artery segment. The lesion stenosis prior to intervention was 99% with CASEY 1 flow. A 6 Fr XB 3 Guide Catheter was used to engage the ostium. BALLOON DILATION A Balloon catheter 2.0 x 15 mm Mini Trek RX was inserted and inflated up to 8.00atm for 13seconds. STENT DEPLOYMENT A drug-eluting stent 2.25 x 22 mm Resolute VEL was inserted and inflated up to 14atm for 13seconds. Final angiography reveals 00 % stenosis with CASEY 3 flow. PCI Technique Lesion 2 Percutaneous Coronary Intervention was performed on the mistal right coronary artery. The lesion stenosis prior to intervention was 80% with CASEY 2 flow. A 6 Fr 3DRC Guide Catheter was used to engage the ostium. BALLOON DILATION A Balloon catheter 2.0 x 15 mm Mini Trek RX was inserted and inflated up to 4.00atm for 11seconds. STENT DEPLOYMENT A drug-eluting stent 2.75 x 18 mm Resolute VEL was inserted and inflated up to 12atm for 11seconds. POST STENT DEPLOYMENT BALLOON DILATION A Balloon catheter 3.0 x 9 mm Sprinter NC was inserted and inflated up to 12.00atm for 17seconds. Final angiography reveals 0 % stenosis with CASEY 3 flow. PCI Technique Lesion 3 Percutaneous Coronary Intervention was performed on the Distal right coronary artery. The lesion stenosis prior to intervention was 90% with CASEY 2 flow. A 6 Fr 3DRC Guide Catheter was used to engage the ostium. BALLOON DILATION A Balloon catheter 2.0 x 15 mm Mini Trek RX was inserted and inflated up to 12.00atm for 12seconds. STENT DEPLOYMENT A drug-eluting stent 2.5 x 14 mm Resolute VEL was inserted and inflated up to 12.00atm for 12seconds. Final angiography reveals 0 % stenosis with CASYE 3 flow. Conclusion Multi Vessel CAD decreased LV FX. EF-35-40%, EDP_15, Successful pTCA with Vel of Proximal LAD ,Mid RCA , and Distal RCA with VEL. Recommendations Smoking Cessation Cardiac Rehabilitation ReferralDaily ASA with Plavix for at least one year Aggressive Medical TherapyCardiac Risk Reduction Program Weight Loss Reduction Program CC; Dr. Desir.
[2017-03-01 05:26] LABS: ADD MANUAL DIFF? NO
[2017-03-01 05:38] LABS: BASO # 0.04 K/mm3 (0.0-2.0); BASO % 0.4 % (0.0-3.0); EOS # 0.1 (0.0-0.7); EOS % 1.5 % (1.5-5.0); GRAN # 6.16 (1.4-6.5); GRAN % 66.4 % (50.0-68.0); HEMATOCRIT 35.3 % (36.0-48.0); LYMPH # 2.3 (1.2-3.4); LYMPH % 24.4 % (22.0-35.0); MEAN CELL VOLUME 80.6 fL (80.0-105.0); MEAN CORPUSCULAR HEMOGLOBIN 28.1 pg (25.0-35.0); MEAN CORPUSCULAR HGB CONC 34.8 g/dl (31.0-37.0); MEAN PLATELET VOLUME 9.5 fl (7.0-11.0); MONO # 0.7 (0.1-0.6); MONO % 7.3 % (1.0-6.0); PLATELET COUNT 222 10^3/uL (120.0-450.0); RED CELL DISTRIBUTION WIDTH 14.3 % (11.5-14.5); WHITE BLOOD COUNT 9.3 10^3/ul (4.5-11.0)
[2017-03-01 05:43] LABS: ALB/GLOB RATIO 1.1 (1.1-1.8); ALKALINE PHOSPHATASE 51 U/L (38-133); ALT/SGPT 20 U/L (7-56); AST/SGOT 54 U/L (15-39); BILIRUBIN,TOTAL 0.7 mg/dL (0.2-1.3); BLOOD UREA NITROGEN 14 mg/dL (7-21); CALCIUM 8.3 mg/dL (8.4-10.5); CARBON DIOXIDE 24 mmol/L (21-33); CHLORIDE 104 mmol/L (98-107); CHOLESTEROL 186 mg/dL (130-200); GFR AFRICAN-AMERICAN > 60; GLUCOSE,RANDOM 255 mg/dL (70-110); MAGNESIUM 1.6 mg/dL (1.7-2.2); PHOSPHOROUS 2.6 mg/dL (2.5-4.5); POTASSIUM 4.1 mmol/L (3.6-5.0); SODIUM 134 mmol/L (132-148); TOTAL PROTEIN 6.2 g/dL (5.8-8.3)
[2017-03-01 06:39] LABS: TROPONIN I 7.57 ng/mL
--- NOTE | 2017-03-01 07:13 | CP.CCUPN ---
CCU Subjective - Physician Review Events Since Last Encounter (Free Text): 03/01/17 09:48 Patient seen and examined bedside. No acute events overnight. Patient denies any current CP, SOB, abd pain, n/v/d, fevers, chills. Critical Care Time Spent (in minutes): 30 CCU Objective - Vital Signs / Intake & Output Vital Signs (Last 4 hours): Vital Signs Pulse Resp BP Pulse Ox 03/01/17 07:00 74 03/01/17 06:00 70 03/01/17 05:00 73 18 03/01/17 04:31 82 105/72 98 03/01/17 04:00 75 19 134/71 95 03/01/17 03:30 72 9 L 121/73 95 Intake and Output (Last 8hrs): Intake & Output 02/28/17 03/01/17 03/01/17 22:59 06:59 14:59 Intake Total 707 400 Output Total 600 1000 Balance 107 -600 Weight 175 lb 170 lb 7 oz Intake: IV 587 400 Right Forearm 587 400 Oral 120 Output: Urine 600 1000 Urine, Voided 600 1000 Other: Voiding Method Bedpan Bedpan # Voids Urine, Voided 2 - Physical Exam Head: Positive for: Atraumatic, Normocephalic Pupils: Positive for: PERRL Extroacular Muscles: Positive for: EOMI Conjunctiva: Positive for: Normal Ears: Positive for: Normal Mouth: Positive for: Moist Mucous Membranes. Negative for: Normal Teeth (poor dentition) Nose (External): Positive for: Atraumatic Nose (Internal): Positive for: Normal Inspection Neck: Positive for: Normal Range of Motion Respiratory/Chest: Positive for: Clear to Auscultation, Good Air Exchange. Negative for: Respiratory Distress, Accessory Muscle Use, Wheezes Cardiovascular: Positive for: Regular Rate and Rhythm, Murmurs (2/6 systolic RSB ), Normal S1, S2, Peripheal Pulses Present (1+ BL posterior tibial, 1+ BL dorsalis pedis). Negative for: Irregular Rhythm, Tachycardic Abdomen: Positive for: Normal Bowel Sounds. Negative for: Tenderness, Distention, Peritoneal Signs, Rebound, Guarding, Other (No inguinal hematomas post-cath) Upper Extremity: Positive for: Normal Inspection, Capillary Refill < 2s. Negative for: Cyanosis, Edema Lower Extremity: Positive for: Normal Inspection. Negative for: Edema, CALF TENDERNESS, NORMAL PULSES (Diminished 1+ BL DP and PT), Cyanosis, Phylicia's Sign, Tenderness, Erythema Neurological: Positive for: GCS=15, CN II-XII Intact, Speech Normal Skin: Positive for: Warm, Dry, Rashes, Normal Color. Negative for: Diaphoretic Psychiatric: Positive for: Alert, Oriented x 3, Normal Insight, Normal Concentration - Medications Active Medications: Active Medications Generic Name Dose Route Start Last Admin Trade Name Freq PRN Reason Stop Dose Admin Acetaminophen 650 mg 02/28/17 14:09 Tylenol 325mg Tab PO Q4H PRN FOR PAIN Alprazolam 0.25 mg 02/28/17 14:09 Xanax PO 03/07/17 14:10 BID PRN Anxiety Aspirin 81 mg 03/01/17 10:00 Ecotrin PO DAILY SONA Atorvastatin Calcium 80 mg 02/28/17 17:00 02/28/17 17:31 Lipitor PO 80 mg DIN SONA Administration Clopidogrel Bisulfate 75 mg 03/01/17 10:00 Plavix PO DAILY [facility] Docusate Sodium 100 mg 02/28/17 18:00 02/28/17 17:31 Colace PO 100 mg BID SONA Administration Insulin Human Lispro 0 units 02/28/17 16:30 02/28/17 22:33 Humalog Med SC Not Given ACHS [facility] Protocol Metoprolol Tartrate 25 mg 02/28/17 18:00 02/28/17 17:31 Lopressor PO 25 mg BID SONA Administration Ondansetron HCl 4 mg 02/28/17 16:28 Zofran Inj IVP Q4H PRN Nausea/Vomiting Ramipril 1.25 mg 03/01/17 10:00 Altace PO DAILY [facility] Zolpidem Tartrate 5 mg 02/28/17 14:09 Ambien PO HS PRN Insomnia - Patient Studies Lab Studies: Lab Studies 03/01/17 02/28/17 02/28/17 Range/Units 05:20 16:07 14:20 WBC 9.3 9.0 (4.5-11.0) 10^3/ul RBC 4.38 4.68 (3.5-6.1) 10^6/uL Hgb 12.3 13.3 (12.0-16.0) gm/dL Hct 35.3 L 37.6 (36.0-48.0) % MCV 80.6 80.3 (80.0-105.0) fL MCH 28.1 28.4 (25.0-35.0) pg MCHC 34.8 35.4 (31.0-37.0) g/dl RDW 14.3 14.1 (11.5-14.5) % Plt Count 222 246 (120.0-450.0) 10^3/uL MPV 9.5 9.7 (7.0-11.0) fl Gran % 66.4 68.7 H (50.0-68.0) % Lymph % (Auto) 24.4 24.0 (22.0-35.0) % [place] % (Auto) 7.3 H 5.9 (1.0-6.0) % Eos % (Auto) 1.5 1.1 L (1.5-5.0) % Baso % (Auto) 0.4 0.3 (0.0-3.0) % Gran # 6.16 6.15 (1.4-6.5) Lymph # 2.3 2.2 (1.2-3.4) [place] # 0.7 H 0.5 (0.1-0.6) Eos # 0.1 0.1 (0.0-0.7) Baso # 0.04 0.03 (0.0-2.0) K/mm3 Sodium 134 133 (132-148) mmol/L Potassium 4.1 4.4 (3.6-5.0) mmol/L Chloride 104 100 (98-107) mmol/L Carbon Dioxide 24 26 (21-33) mmol/L Anion Gap 10 11 (10-20) BUN 14 12 (7-21) mg/dL Creatinine 0.6 0.7 (0.5-1.4) mg/dL Est GFR ( Amer) > 60 > 60 Est GFR (Non-Af Amer) > 60 > 60 POC Glucose (mg/dL) 243 H (65-110) mg/dL Random Glucose 255 H 304 H* D (70-110) mg/dL Hemoglobin A1c 10.9 H (4.2-6.5) % Calcium 8.3 L 8.4 (8.4-10.5) mg/dL Phosphorus 2.6 (2.5-4.5) mg/dL Magnesium 1.6 L (1.7-2.2) mg/dL Total Bilirubin 0.7 (0.2-1.3) mg/dL AST 54 H (15-39) U/L ALT 20 (7-56) U/L Alkaline Phosphatase 51 (38-133) U/L Lactate Dehydrogenase 534 304 L (333-699) U/L Total Creatine Kinase 242 H 170 (35-230) U/L CK-MB (CK-2) 19.6 H (0.0-3.6) ng/mL CK-MB (CK-2) % 8.1 H (2.5-3.0) % Troponin I 7.57 H* D 1.47 H* D ng/mL Total Protein 6.2 (5.8-8.3) g/dL Albumin 3.2 (3.0-4.8) g/dL Globulin 3.0 gm/dL Albumin/Globulin Ratio 1.1 (1.1-1.8) Triglycerides 404 H (35-160) mg/dL Cholesterol 186 (130-200) mg/dL HDL Cholesterol 29 (29-60) mg/dL TSH 3rd Generation 2.69 (0.46-4.68) mIU/mL Laboratory Results - last 24 hr 02/28/17 02/28/17 03/01/17 14:20 16:07 05:20 WBC 9.0 9.3 RBC 4.68 4.38 Hgb 13.3 12.3 Hct 37.6 35.3 L MCV 80.3 80.6 MCH 28.4 28.1 MCHC 35.4 34.8 RDW 14.1 14.3 Plt Count 246 222 MPV 9.7 9.5 Gran % 68.7 H 66.4 Lymph % (Auto) 24.0 24.4 [place] % (Auto) 5.9 7.3 H Eos % (Auto) 1.1 L 1.5 Baso % (Auto) 0.3 0.4 Gran # 6.15 6.16 Lymph # 2.2 2.3 [place] # 0.5 0.7 H Eos # 0.1 0.1 Baso # 0.03 0.04 Sodium 133 134 Potassium 4.4 4.1 Chloride 100 104 Carbon Dioxide 26 24 Anion Gap 11 10 BUN 12 14 Creatinine 0.7 0.6 Est GFR ( Amer) > 60 > 60 Est GFR (Non-Af Amer) > 60 > 60 POC Glucose (mg/dL) 243 H Random Glucose 304 H* D 255 H Hemoglobin A1c 10.9 H Calcium 8.4 8.3 L Phosphorus 2.6 Magnesium 1.6 L Total Bilirubin 0.7 AST 54 H ALT 20 Alkaline Phosphatase 51 Lactate Dehydrogenase 304 L 534 Total Creatine Kinase 170 242 H CK-MB (CK-2) 19.6 H CK-MB (CK-2) % 8.1 H Troponin I 1.47 H* D 7.57 H* D Total Protein 6.2 Albumin 3.2 Globulin 3.0 Albumin/Globulin Ratio 1.1 Triglycerides 404 H Cholesterol 186 HDL Cholesterol 29 TSH 3rd Generation 2.69 EKG/Cardiology Studies: Cardiology / EKG Studies 02/28/17 14:08 ELECTROCARDIOGRAM Urgent Comment: 12 lead EKG upon arrival in unit Reason For Exam: post ptca 03/01/17 07:00 ELECTROCARDIOGRAM Routine Comment: s/P ptca Reason For Exam: CAD PRE OP:: N Does Patient Have a Pacemaker?: No 03/01/17 14:15 ELECTROCARDIOGRAM DAILY Comment: Reason For Exam: chest pain Fingerstick Blood Sugar Results: 250 Review of Systems - Constitutional Constitutional: absent: Fever, Chills - EENT Eyes: absent: Change in Vision Ears: absent: Dizziness - Cardiovascular Cardiovascular: absent: Chest Pain, Diaphoresis, Dyspnea, Palpitations - Respiratory Respiratory: absent: Cough, Pain on Inspiration - Gastrointestinal Gastrointestinal: absent: Abdominal Pain, Diarrhea, Nausea, Vomiting - Genitourinary Genitourinary: absent: Dysuria - Integumentary Integumentary: absent: Erythema, New Lesions, Rash, Unusual Bruising Critical Care Progress Note - Nutrition Nutrition: Nutrition Category Date Time Status Heart Healthy Diet [DIET] Diets 02/28/17 Dinner Ordered Assessment/Plan - Assessment and Plan (Free Text) Assessment: 51 yo F w h/o NIDDM2, HTN, HLD, medical noncompliance admitted with anterior STEMI now s/p emergent catheterization requiring 3 PRAFUL (1 to LAD, 2 to RCA) Plan: Neuro: AAOx3, NAD Maintain normothermia CV: s/p code heart Anterior STEMI requiring emergent PCI, one PRAFUL to LAD, 2 PRAFUL to RCA Troponins trended up to 7.57, now new EKG changes since post-cath ST elevations seen on original EKG now resolved on subsequent EKG. Serial EKGs as per cardio Off integrillin drip as per cardiology ASA, Plavix, Lipitor, Lopressor, Ramipril Maintain MAP >65 Significant hypertriglyceridemia (477), hypercholesterolemia (263) - Continue Lipitor. Extensively counseled patient regarding immediate dietary and exercise regimen adherence, smoking cessation Pulm: No acute issues. Patient comfortable on NC Maintain spo2>90 GI: HHD diet Renal: No acute issues. Continue monitoring renal function, I&Os Endo: BS in 200s. Add 5units Levemir Q12hr. Continue Lispro Medium SSI, ACHS accuchecks Maintain euglycemia 140-180. Adjust regimen as needed A1C 10.9. Diabetic and nutrition education has been provided to the patient by physicians and has been requested by counselors ID: No leukocytosis, afebrile. Continue to monitor. Heme: No acute issues. Continue to monitor for signs of bleeding at post-op sites Dispo: transfer to telemetry - Date & Time Date: 03/01/17 Time: 10:50
[2017-03-01] MEDS ORDERED: Magnesium Sulfate 2 GM in Sodium Chloride 0.9% 100 ML IVPB ONE (07:25)
[2017-03-01] MEDS: Insulin Lispro (humaLOG) MEDIUM Coverage SC SCH ×4 (07:44→22:06)
--- NOTE | 2017-03-01 09:05 | PN ---
DATE: 03/01/2017 REASON FOR CONSULTATION AND FOLLOWUP: Code ST-segment elevation myocardial infarction, acute anterio r wall HI, status post multivessel angioplasty. BRIEF CLINICAL HISTORY: This is a 51-year-old diabetic female, obese, active tobacco abuse, very non compliant with medication, lost follow up because she lost insurance and not taking any medicine, who came in here with chest pain that start at 10:00. Came to the Emergency room at 12:00 with anterior wall myocardial infarction, status post cardiac catheterization and subsequently multivessel angiopl asty was done. Lying comfortably. No chest pain, no shortness of breath, no palpitation. Catheteri zation was started for left radial but very tortuous vessels; could not engage the left main, so fariba ent had a femoral access and ultimately subsequently the patient had a PTCA of LAD, very proximal, an d PTCA of RCA. Multivessel PTCA was done. Denies any chest pain, shortness of breath, any palpitati on. Ejection fraction around 35-40 by catheterization and a stress test apical hypokinesis. No furt her episode of chest pain noted after the angioplasty. EKG shows complete resolution of ST segment w ith T inversion in anterior lead noted which is consistent with new onset of HI. PHYSICAL EXAMINATION: VITAL SIGNS: Temperature afebrile, heart rate ____, blood pressure 105/54. HEENT: PERRLA. Extraocular muscles intact. NECK: Supple. No carotid bruits. No thyromegaly. CHEST: Clear to auscultation. HEART: S1, S2 regular. ABDOMEN: Soft. EXTREMITIES: Clubbing and cyanosis negative. BLOOD WORKUP: WBC 9.3, hemoglobin 12.3, hematocrit 35.3, platelet count 222. Chemistry shows sodium 134, potassium 4.____, chloride 104, carbon dioxide 24, anion gap of 10, BUN 14, creatinine 0.6. Tr oponin 7.57. Total CPK of 242. TSH 2.69, triglycerides 404, cholesterol 186, LDL is pending as trig lyceride high. IMPRESSION: Acute anterior wall myocardial infarction, uncontrolled diabetes, obesity with body mass 29.3 kg/m2, hypertension, hyperlipidemia, acute anterior wall myocardial infarction, multivessel ang ioplasty. The patient had echocardiography done yesterday that showed ejection fraction 35-40, trace tricuspid regurgitation, right ventricular systolic pressure 20, moderate to severe hypokinesis ____ noted. By cath, ejection fraction 35-40, EDP was ____15. RECOMMENDATION: Will get the MUGA scan today. Continue aspirin and Plavix. Complete cessation of s moking. Continue low dose of JACQUES inhibitor. Continue low dose of beta christofer. Emphasis made to th is patient for complete compliance with medication, mandatory aspirin and Plavix for 1 year emphasis made, and complete cessation of smoking. Also mentioned if the patient stopped aspirin and Plavix an d continued to smoke, the patient can have another HI because of occlusion of the stent/restenosis an d would be a life-ending attempt and patient can of arrhythmia. The patient said she will not sm alexy and she will comply with the medication. Will transfer the patient to tele. Possible discharge home in the a.m. Will get a MUGA scan today. Thank you, Dr. Buckley, for providing the opportunity in taking care of the patient. Will follow w ith you. Mare Hollis MD cc: [id number] TT: 03/01/2017 09:04:47 Confirmation # [id number] Dictation # [id number] betty
[2017-03-01] MEDS: Insulin Detemir 100 units/ml Vial (Levemir) SC SCH ×2 (11:47→22:03)
--- NOTE | 2017-03-01 14:17 | CARD ---
APPROVED REPORT EKG Measurement Heart [id number] <Conclusion> Normal sinus rhythm T wave abnormality, consider anterolateral ischemia Prolonged QT Abnormal ECG
--- NOTE | 2017-03-01 15:20 | CP.PCM.PN ---
<Kvng Avila - Last Filed: 03/01/17 15:22> Subjective - Date & Time of Evaluation Date of Evaluation: 03/01/17 Time of Evaluation: 15:17 - Subjective Subjective: Pt seen and examined at bedside in the ICU. Pt doing well at this time, no acute events overnight. Pt complains of right groin pain at the surgical site. Pt tolerating diet well. Denies CP, SOB, N/V/D, fevers, chills. Objective - Vital Signs/Intake and Output Vital Signs (last 24 hours): Temp Pulse Resp BP Pulse Ox 98.1 F 76 20 101/52 L 94 L 03/01/17 07:34 03/01/17 14:00 03/01/17 14:00 03/01/17 11:47 03/01/17 14:00 Intake and Output: 03/01/17 03/01/17 06:59 18:59 Intake Total 400 Output Total 1000 Balance -600 - Medications Medications: Current Medications Acetaminophen (Tylenol 325mg Tab) 650 mg PO Q4H PRN PRN Reason: FOR PAIN Alprazolam (Xanax) 0.25 mg PO BID PRN PRN Reason: Anxiety Stop: 03/07/17 14:10 Aspirin (Ecotrin) 81 mg PO DAILY [facility] Last Admin: 03/01/17 09:22 Dose: 81 mg Atorvastatin Calcium (Lipitor) 80 mg PO DIN [facility] Last Admin: 02/28/17 17:31 Dose: 80 mg Clopidogrel Bisulfate (Plavix) 75 mg PO DAILY [facility] Last Admin: 03/01/17 09:22 Dose: 75 mg Docusate Sodium (Colace) 100 mg PO BID [facility] Last Admin: 03/01/17 09:22 Dose: 100 mg Insulin Detemir (Levemir) 5 unit SC Q12 [facility] Last Admin: 03/01/17 11:47 Dose: 5 unit Insulin Human Lispro (Humalog Med) 0 units SC ACHS [facility] PRN Reason: Protocol Last Admin: 03/01/17 11:46 Dose: 5 units Metoprolol Tartrate (Lopressor) 25 mg PO BID [facility] Last Admin: 03/01/17 09:22 Dose: 25 mg Ondansetron HCl (Zofran Inj) 4 mg IVP Q4H PRN PRN Reason: Nausea/Vomiting Ramipril (Altace) 1.25 mg PO DAILY [facility] Last Admin: 03/01/17 09:21 Dose: 1.25 mg Zolpidem Tartrate (Ambien) 5 mg PO HS PRN PRN Reason: Insomnia - Labs Labs: 03/01/17 05:20 03/01/17 05:20 PT 10.2 Seconds (9.9-11.8) 02/28/17 11:56 INR 0.94 (0.93-1.08) 02/28/17 11:56 APTT 26.9 Seconds (23.7-30.8) 02/28/17 11:56 - Constitutional Appears: Well, No Acute Distress - Head Exam Head Exam: ATRAUMATIC, NORMAL INSPECTION, NORMOCEPHALIC - ENT Exam ENT Exam: Mucous Membranes Moist, Normal Exam - Respiratory Exam Respiratory Exam: Clear to Ausculation Bilateral, NORMAL BREATHING PATTERN. absent: Rhonchi, Wheezes - Cardiovascular Exam Cardiovascular Exam: RRR, +S1, +S2 - GI/Abdominal Exam GI & Abdominal Exam: Soft, Normal Bowel Sounds. absent: Tenderness - Exam Additional comments: Right groin surgical site painful to palpation. Dressing clean, dry, and intact. - Extremities Exam Extremities Exam: absent: Calf Tenderness, Pedal Edema Additional comments: Left wrist bandaged. Clean, dry, and intact. - Neurological Exam Neurological Exam: Alert, Awake, Oriented x3 - Psychiatric Exam Psychiatric exam: Normal Affect, Normal Mood - Skin Skin Exam: Intact, Normal Color, Warm Assessment and Plan - Assessment and Plan (Free Text) Plan: 51 y/o F with PMH of DM presents to the hospital with STEMI, 2 stents placed in RCA and 1 in LAD. Integrillin stopped, but rest of cardiac medications will be continued. Pt was started on levemir 5 q12h by ICU team. MUGA scan was ordered by cardiology. Echocardiogram shows EF of 35-40% with moderate to severe hypokinesis in the apical anterior wall. Lipid profile shows elevated triglycerides, LDL, and cholesterol. Awaiting A1c results. 1. STEMI - Continue ASA, plavix, ramipril, atorvastatin and lopressor - Echocardiogram shows EF of 35-40% with moderate to severe hypokinesis in the apical anterior wall - No active chest pain 2. DM - ISS - Levemir added to regimen - Pt jesus be seen by food general manager - A1c pending - Monitor glucose levels 3. Dyslipidemia - Atorvastatin continued - Dietary modifications suggested 4. Tobacco use - Counseled on cessation 5. PPX - SCDs - Gwen Seen, reviewed, and discussed with attending PENNY AvilaY-1 <Kathia Desir - Last Filed: 03/01/17 16:17> Objective - Vital Signs/Intake and Output Vital Signs (last 24 hours): Temp Pulse Resp BP Pulse Ox 98.1 F 81 20 120/84 97 03/01/17 16:00 03/01/17 16:00 03/01/17 16:00 03/01/17 16:00 03/01/17 16:00 Intake and Output: 03/01/17 03/01/17 06:59 18:59 Intake Total 400 Output Total 1000 Balance -600 - Medications Medications: Current Medications Acetaminophen (Tylenol 325mg Tab) 650 mg PO Q4H PRN PRN Reason: FOR PAIN Alprazolam (Xanax) 0.25 mg PO BID PRN PRN Reason: Anxiety Stop: 03/07/17 14:10 Aspirin (Ecotrin) 81 mg PO DAILY [facility] Last Admin: 03/01/17 09:22 Dose: 81 mg Atorvastatin Calcium (Lipitor) 80 mg PO DIN [facility] Last Admin: 02/28/17 17:31 Dose: 80 mg Clopidogrel Bisulfate (Plavix) 75 mg PO DAILY [facility] Last Admin: 03/01/17 09:22 Dose: 75 mg Docusate Sodium (Colace) 100 mg PO BID [facility] Last Admin: 03/01/17 09:22 Dose: 100 mg Insulin Detemir (Levemir) 5 unit SC Q12 [facility] Last Admin: 03/01/17 11:47 Dose: 5 unit Insulin Human Lispro (Humalog Med) 0 units SC ACHS [facility] PRN Reason: Protocol Last Admin: 03/01/17 11:46 Dose: 5 units Metoprolol Tartrate (Lopressor) 25 mg PO BID [facility] Last Admin: 03/01/17 09:22 Dose: 25 mg Ondansetron HCl (Zofran Inj) 4 mg IVP Q4H PRN PRN Reason: Nausea/Vomiting Ramipril (Altace) 1.25 mg PO DAILY [facility] Last Admin: 03/01/17 09:21 Dose: 1.25 mg Zolpidem Tartrate (Ambien) 5 mg PO HS PRN PRN Reason: Insomnia - Labs Labs: 03/01/17 05:20 03/01/17 05:20 PT 10.2 Seconds (9.9-11.8) 02/28/17 11:56 INR 0.94 (0.93-1.08) 02/28/17 11:56 APTT 26.9 Seconds (23.7-30.8) 02/28/17 11:56 Attending/Attestation - Attestation I have personally seen and examined this patient.: Yes I have fully participated in the care of the patient.: Yes I have reviewed all pertinent clinical information, including history, physical exam and plan: Yes Notes (Text): 03/01/17 16:13 51 year old female with past medical history of diabetes and dyslipidemia who presented with complaint of chest pain found to have STEMI. She was taken to the center medical and lab director and is s/p stents in the LAD and RCA. Continue with aspirin, plavix, statin, lopressor and ramipril. Echocardiogram was reviewed as above and MUGA scan was ordered. Will follow up with cardiology recommendations. Continue with insulin ss for diabetes. A1c level is 10.9. She is started on levemir and diabetic education referral is requested to teach self administeration of insulin. Metformin is on hold post cath procedure. She was counselled on smoking abstinence. She states she'll quit. Possible downgrade to telemetry unit today. Kathia Desir MD Hospitalist.
--- NOTE | 2017-03-01 18:16 | CARD ---
APPROVED REPORT EKG Measurement Heart [id number] <Conclusion> Age and gender specific ECG analysis Normal sinus rhythm ST elevation, consider inferior injury or acute infarct Prolonged QT ACUTE IN Consider right ventricular involvement in acute inferior infarct Abnormal ECG
--- NOTE | 2017-03-01 18:35 | CARD ---
APPROVED REPORT INDICATION CAD S/P STEMI ANTERIOR WALL SD PROCEDURE The above named patient recieved 26.9 millicuries of Tc99m tagged red blood cells intravenously. After achieving equilibrium, gated imaging of 16/frame/cycle was performed utillizing Gamma camera interfaced with a digital computer and gated device. Gated imaging was then performed in the left anterior oblique, anterior, and the left lateral projections. Findings Left Ventricle: The quality of the study is suboptimal due to poor positioning. The left ventricle is within normal limits in size. The right ventricle is normal in size. Wall motion study shows good contractility of the left ventricle. RV wall motion is normal. The right atrium is dynamic. The remainder of the study is unremarkable. Impressions Normal gated wall motion of left ventricle wall. LVEF = 63%. Normal RV wall motion.
--- NOTE | 2017-03-01 22:52 | CP.PCM.PN ---
Subjective - Date & Time of Evaluation Date of Evaluation: 03/01/17 Time of Evaluation: 22:48 - Subjective Subjective: Nigh Call c/o: Pain at cath entry site at R groin 51 yo F w h/o NIDDM2, HTN, HLD, medical noncompliance admitted with anterior STEMI now s/p emergent catheterization requiring 3 PRAFUL (1 to LAD, 2 to RCA) 2 days ago. R groin entry site has been swollen since yesterday. No pain when lying still. Pain 6/10 sharp when moving leg. pedal pulses present. Objective - Vital Signs/Intake and Output Vital Signs (last 24 hours): Temp Pulse Resp BP Pulse Ox 98.5 F 76 18 96/52 L 99 03/01/17 19:36 03/01/17 19:36 03/01/17 19:36 03/01/17 19:36 03/01/17 19:36 Intake and Output: 03/01/17 03/02/17 18:59 06:59 Intake Total 980 Output Total 700 Balance 280 - Medications Medications: Current Medications Acetaminophen (Tylenol 325mg Tab) 650 mg PO Q4H PRN PRN Reason: FOR PAIN Last Admin: 03/01/17 22:03 Dose: 650 mg Alprazolam (Xanax) 0.25 mg PO BID PRN PRN Reason: Anxiety Stop: 03/07/17 14:10 Aspirin (Ecotrin) [address] [facility] Last Admin: 03/01/17 09:22 Dose: 81 mg Atorvastatin Calcium (Lipitor) [address] [facility] Last Admin: 03/01/17 17:01 Dose: 80 mg Clopidogrel Bisulfate (Plavix) [address] [facility] Last Admin: 03/01/17 09:22 Dose: 75 mg Docusate Sodium (Colace) [address] [facility] Last Admin: 03/01/17 17:01 Dose: 100 mg Insulin Detemir (Levemir) [address] [facility] Last Admin: 03/01/17 22:03 Dose: 5 unit Insulin Human Lispro (Humalog Med) [address] [facility] PRN Reason: Protocol Last Admin: 03/01/17 22:06 Dose: Not Given Metoprolol Tartrate (Lopressor) [address] [facility] Last Admin: 03/01/17 17:01 Dose: 25 mg Ondansetron HCl (Zofran Inj) 4 mg IVP Q4H PRN PRN Reason: Nausea/Vomiting Ramipril (Altace) 1.25 mg PO DAILY [facility] Last Admin: 03/01/17 09:21 Dose: 1.25 mg Zolpidem Tartrate (Ambien) 5 mg PO HS PRN PRN Reason: Insomnia - Labs Labs: 03/01/17 05:20 03/01/17 05:20 PT 10.2 Seconds (9.9-11.8) 02/28/17 11:56 INR 0.94 (0.93-1.08) 02/28/17 11:56 APTT 26.9 Seconds (23.7-30.8) 02/28/17 11:56 - Constitutional Appears: No Acute Distress - Head Exam Head Exam: ATRAUMATIC, NORMOCEPHALIC - Eye Exam Eye Exam: EOMI, Normal appearance, PERRL - ENT Exam ENT Exam: Mucous Membranes Moist - GI/Abdominal Exam GI & Abdominal Exam: Soft, Normal Bowel Sounds. absent: Tenderness - Extremities Exam Extremities Exam: Joint Swelling (R groin cath entry site with increase warmth but no erythema. Palpation elicits sharp pain. ) - Back Exam Back Exam: absent: CVA tenderness (L), CVA tenderness (R) Additional comments: no lateral or flank pain b.l - Neurological Exam Neurological Exam: Alert, Awake, Oriented x3 Neuro motor strength exam: Left Upper Extremity: 5, Right Upper Extremity: 5, Left Lower Extremity: 5, Right Lower Extremity: 5 - Psychiatric Exam Psychiatric exam: Normal Affect, Normal Mood - Skin Skin Exam: Dry, Warm Assessment and Plan - Assessment and Plan (Free Text) Plan: Pain at R groin, onset s/p cardiac cath insertion with increase warmth, localized, no erythema, no ecchymosis. + distal pulses - DDx: Tissue tension from cath entry vs inguinal hematoma. Doubt peritoneal hematoma - Ultram PRN - physical therapy - If sx not improve, CT abdomin or pelvis
[2017-03-02 06:47] VITALS: O2SAT 95
[2017-03-02 07:21] LABS: ADD MANUAL DIFF? NO
[2017-03-02 07:26] LABS: BASO # 0.03 K/mm3 (0.0-2.0); BASO % 0.3 % (0.0-3.0); EOS # 0.2 (0.0-0.7); EOS % 2.1 % (1.5-5.0); GRAN # 5.73 (1.4-6.5); GRAN % 63.6 % (50.0-68.0); HEMATOCRIT 33.5 % (36.0-48.0); LYMPH # 2.4 (1.2-3.4); MEAN CELL VOLUME 80.5 fL (80.0-105.0); MEAN CORPUSCULAR HEMOGLOBIN 28.1 pg (25.0-35.0); MEAN CORPUSCULAR HGB CONC 34.9 g/dl (31.0-37.0); MEAN PLATELET VOLUME 9.8 fl (7.0-11.0); MONO # 0.6 (0.1-0.6); PLATELET COUNT 218 10^3/uL (120.0-450.0); RED CELL DISTRIBUTION WIDTH 14.6 % (11.5-14.5)
[2017-03-02 07:42] LABS: ALKALINE PHOSPHATASE 49 U/L (38-133); ALT/SGPT 13 U/L (7-56); AST/SGOT 26 U/L (15-39); BILIRUBIN,TOTAL 0.6 mg/dL (0.2-1.3); BLOOD UREA NITROGEN 14 mg/dL (7-21); CALCIUM 8.4 mg/dL (8.4-10.5); CARBON DIOXIDE 24 mmol/L (21-33); CHLORIDE 102 mmol/L (98-107); GFR AFRICAN-AMERICAN > 60; GLUCOSE,RANDOM 193 mg/dL (70-110); MAGNESIUM 1.6 mg/dL (1.7-2.2); POTASSIUM 3.8 mmol/L (3.6-5.0); SODIUM 133 mmol/L (132-148)
[2017-03-02 07:54] LABS: TROPONIN I 2.48 ng/mL
[2017-03-02] MEDS: Insulin Lispro (humaLOG) MEDIUM Coverage SC SCH ×2 (09:32→12:04)
[2017-03-02] MEDS: Insulin Detemir 100 units/ml Vial (Levemir) SC SCH (10:09)
[2017-03-02] MEDS ORDERED: Magnesium Oxide 400 mg Tab UD PO ONE (11:36)
[2017-03-02 12:28] VITALS: BP 164/58; PULSE 78; RESP 16; TEMP 97.9
--- NOTE | 2017-03-02 12:44 | CARD ---
APPROVED REPORT EKG Measurement Heart [id number] <Conclusion> Normal sinus rhythm T wave abnormality, recent Anterior wall GA. Inferior Wall GA,probably Recent, Abnormal ECG
--- NOTE | 2017-03-02 13:18 | CP.PCM.DIS ---
Provider - Provider Date of Admission: 02/28/17 14:00 Attending physician: Kathia Desir MD Consults: Cardiology: Dr. Hollis Time Spent in preparation of Discharge (in minutes): 40 Hospital Course - Lab Results Lab Results: Micro Results 02/28/17 14:10 Nose MRSA Culture (Admit) - Final MRSA NOT DETECTED Most Recent Lab Values WBC 9.0 10^3/ul (4.5-11.0) 03/02/17 06:45 RBC 4.16 10^6/uL (3.5-6.1) 03/02/17 06:45 Hgb 11.7 gm/dL (12.0-16.0) L 03/02/17 06:45 Hct 33.5 % (36.0-48.0) L 03/02/17 06:45 MCV 80.5 fL (80.0-105.0) 03/02/17 06:45 MCH 28.1 pg (25.0-35.0) 03/02/17 06:45 MCHC 34.9 g/dl (31.0-37.0) 03/02/17 06:45 RDW 14.6 % (11.5-14.5) H 03/02/17 06:45 Plt Count 218 10^3/uL (120.0-450.0) 03/02/17 06:45 MPV 9.8 fl (7.0-11.0) 03/02/17 06:45 Gran % 63.6 % (50.0-68.0) 03/02/17 06:45 Lymph % (Auto) 27.0 % (22.0-35.0) 03/02/17 06:45 [place] % (Auto) 7.0 % (1.0-6.0) H 03/02/17 06:45 Eos % (Auto) 2.1 % (1.5-5.0) 03/02/17 06:45 Baso % (Auto) 0.3 % (0.0-3.0) 03/02/17 06:45 Gran # 5.73 (1.4-6.5) 03/02/17 06:45 Lymph # 2.4 (1.2-3.4) 03/02/17 06:45 [place] # 0.6 (0.1-0.6) 03/02/17 06:45 Eos # 0.2 (0.0-0.7) 03/02/17 06:45 Baso # 0.03 K/mm3 (0.0-2.0) 03/02/17 06:45 PT 10.2 Seconds (9.9-11.8) 02/28/17 11:56 INR 0.94 (0.93-1.08) 02/28/17 11:56 APTT 26.9 Seconds (23.7-30.8) 02/28/17 11:56 Sodium 133 mmol/L (132-148) 03/02/17 06:45 Potassium 3.8 mmol/L (3.6-5.0) 03/02/17 06:45 Chloride 102 mmol/L (98-107) 03/02/17 06:45 Carbon Dioxide 24 mmol/L (21-33) 03/02/17 06:45 Anion Gap 11 (10-20) 03/02/17 06:45 BUN 14 mg/dL (7-21) 03/02/17 06:45 Creatinine 0.6 mg/dL (0.5-1.4) 03/02/17 06:45 Est GFR ( Amer) > 60 03/02/17 06:45 Est GFR (Non-Af Amer) > 60 03/02/17 06:45 POC Glucose (mg/dL) 216 mg/dL (65-110) H 03/02/17 11:21 Random Glucose 193 mg/dL (70-110) H 03/02/17 06:45 Hemoglobin A1c 10.9 % (4.2-6.5) H 02/28/17 14:20 Calcium 8.4 mg/dL (8.4-10.5) 03/02/17 06:45 Phosphorus 3.0 mg/dL (2.5-4.5) 03/02/17 06:45 Magnesium 1.6 mg/dL (1.7-2.2) L 03/02/17 06:45 Total Bilirubin 0.6 mg/dL (0.2-1.3) 03/02/17 06:45 AST 26 U/L (15-39) 03/02/17 06:45 ALT 13 U/L (7-56) 03/02/17 06:45 Alkaline Phosphatase 49 U/L (38-133) 03/02/17 06:45 Lactate Dehydrogenase 416 U/L (333-699) 03/02/17 06:45 Total Creatine Kinase 52 U/L (35-230) 03/02/17 06:45 CK-MB (CK-2) 19.6 ng/mL (0.0-3.6) H 03/01/17 05:20 CK-MB (CK-2) % 8.1 % (2.5-3.0) H 03/01/17 05:20 Troponin I 2.48 ng/mL H* D 03/02/17 06:45 Total Protein 6.0 g/dL (5.8-8.3) 03/02/17 06:45 Albumin 3.0 g/dL (3.0-4.8) 03/02/17 06:45 Globulin 3.0 gm/dL 03/02/17 06:45 Albumin/Globulin Ratio 1.0 (1.1-1.8) L 03/02/17 06:45 Triglycerides 404 mg/dL (35-160) H 03/01/17 05:20 Cholesterol 186 mg/dL (130-200) 03/01/17 05:20 LDL Cholesterol Direct 99 mg/dL (0-129) 03/01/17 05:20 HDL Cholesterol 29 mg/dL (29-60) 03/01/17 05:20 TSH 3rd Generation 2.69 mIU/mL (0.46-4.68) 03/01/17 05:20 - Hospital Course Hospital Course: asdfasdfa 51 year old female with past medical history of diabetes, hypertension , hyperlipidemia presents to [facility] ED with chest pain that began this morning. Patient states she suddenly developed substernal chest pain that radiated to the back and bilateral quintin. Patient rates the pain as "40" out of 10. Patient intially thought it was gas pain, but once the pain did not improved patient drove to the hospital. Patient ran out of her home medications approximately 1 month ago due to financial hardships. In ER, EKG showed ST elevations in V1 and V2, q waves and reciprocal changes in inferior leads. Code heart was called, patient was given ASA, Nitro, Plavix, Integrillin and heparin bolus and taken to slab inspector for emergent PCI. One PRAFUL was placed in LAD and 2 PRAFUL in RCA. Patient is subsequently admitted to ICU for observation and post-cardiac vascular checks. Patient denies any current CP or back pain and states the pain she felt earlier this morning prior to presentation is completely resolved at this time. Patient currently denies fevers, chills, dizziness, headache, shortness of breath, abdominal pain, nausea, vomiting. atient was continued with aspirin, plavix, statin, lopressor and ramipril. Echocardiogram EF of 35- 40% with moderate to severe hypokinesis in the apical anterior wall. MUGA scan was performed and showed normal EF of 63%. Patient's hemoglobin A1c was found be 10.9. She is started on levemir and diabetic education referral is requested to teach self administeration of insulin. Metformin is on hold post cath procedure to avoid risk of renal failure. Patient was counselled on weight loss and smoking cessation, which she agreed to. Overnight patient complained of right anterior thigh tenderness, which was resolved with pain medication and cold compress. Upon discharge, patient further stressed about her financial hardship and will not be able to affordable medications prescribed. Several local pharmacies were contacted and I was able to arrange for patient the most affordable option at [facility]. conservation educator was not able to see the patient before the weekend. Patient was instructed in detail that she will continue her home oral medications until she returns to [facility] clinic on Saturday to be educated on insulin use. The discharge plan and follow ups were extensively discussed with the patient who verbalized with complete understanding. At this time, after discussion of all issues, the patient was deemed medically fit for discharge. - Date & Time of H&P Date of H&P: 02/28/17 Time of H&P: 15:51 Discharge Exam - Head Exam Head Exam: ATRAUMATIC, NORMOCEPHALIC - Eye Exam Eye Exam: EOMI, PERRL - ENT Exam ENT Exam: Mucous Membranes Moist - Neck Exam Neck exam: Normal Inspection - Respiratory Exam Respiratory Exam: Clear to PA & Lateral, NORMAL BREATHING PATTERN. absent: Wheezes, Respiratory Distress, Stridor - Cardiovascular Exam Cardiovascular Exam: REGULAR RHYTHM, RRR, +S1, +S2 - GI/Abdominal Exam GI & Abdominal Exam: Normal Bowel Sounds - Extremities Exam Extremities exam: normal inspection, pedal pulses present - Back Exam Back exam: NORMAL INSPECTION. absent: CVA tenderness (L), CVA tenderness (R) - Neurological Exam Neurological exam: Alert, Oriented x3 - Psychiatric Exam Psychiatric exam: Normal Affect, Normal Mood - Skin Skin Exam: Dry, Warm Discharge Plan - Discharge Medications Prescriptions: Naproxen [Anaprox] 275 mg PO BID PRN #10 tab PRN Reason: Pain, Mild (1-3) Aspirin [Ecotrin] 81 mg PO DAILY #30 tabec Glimepiride 4 mg PO ACB #14 tablet Metformin HCl [Glucophage] 1,000 mg PO BID #28 tablet Metoprolol Tartrate [Lopressor] 25 mg PO BID #60 tab Clopidogrel [Plavix] 75 mg PO DAILY #30 tab Pravastatin Sodium 40 mg PO DAILY #30 tablet - Follow Up Plan Condition: CRITICAL Disposition: HOME/ ROUTINE Instructions: Myocardial Infarction (DC), Diabetes Mellitus Type 2 in Adults ( DC) Additional Instructions: Instructed patient to follow up with PMD at [facility] clinic ([phone]) Instructed electrical helper within one week and possible referral to cardiac rehab Patient told to return to [facility] clinic to see the clinical educator, patient will need insulin Instructed patient to take medications as prescribed and hold DM meds once insulin therapy starts Take napoxen with food as needed for right lower extremity pain Avoid strenuous activities at wok until clearance from cardiology Go to the Nearest ED if symptoms return or worsen Referrals: Mare Hollis MD [Staff Provider] -
--- NOTE | 2017-03-02 19:20 | PN ---
DATE: 03/02/2017 The patient is in room 277, bed 1. REASON FOR CONSULTATION AND FOLLOWUP: Code STEMI, acute anterior wall myocardial infarction, status post multivessel angioplasty. HISTORY OF PRESENT ILLNESS: This is a 51-year-old diabetic female, obese, active tobacco abuse, very noncompliant with medication. The patient was not taking any medications at home, who came in with chest pain and was found to have acute anterior wall myocardial infarction. Code STEMI was called an d the patient had multivessel angioplasty with stent insertion. The patient denies any chest pain, s hortness of breath, or palpitations at present. The patient had a PTCA of the LAD, very proximal, an d PTCA of the RCA. LV ejection fraction was 35-40% by catheterization and some apical hypokinesia wa s also seen. EKG showed complete resolution of ST elevations with T inversions in the anterior leads noted. PHYSICAL EXAMINATION: VITAL SIGNS: Blood pressure 116/63, respirations 20, pulse 94, temperature 97.9. HEAD: Normocephalic. EYES: Pupils normal. Conjunctivae normal. NOSE AND THROAT: Normal. NECK: JVP low. Carotid equal. THORAX: AP diameter normal. LUNGS: Clear. CARDIOVASCULAR: S1, S2. ABDOMEN: Soft, nontender, no organomegaly. Bowel sounds normal. EXTREMITIES: No clubbing, no cyanosis. Cath site okay. Pulses felt okay in the legs. LABORATORY DATA: WBC 9.0, hemoglobin 11.7, hematocrit 33.5, platelet 218, random sugar 216. Sodium 133, potassium 3.8, BUN 14, creatinine 0.6. Troponin is coming down, is 2.48. Troponin had gone up to 7.57. DIAGNOSES: Status post-acute anterior wall myocardial infarction, status post multivessel angioplast y, uncontrolled diabetes, obesity, hypertension, hyperlipidemia, poor compliant patient. Echo was do ne on 02/11, which showed left ventricular ejection fraction 35% to 40%, trace tricuspid regurg, RVSP 20 mmHg and [id number] hypokinesis. The patient had a MUGA scan 03/01/2017, that showed nor mal LV ejection fraction of 63%. So initial ejection fraction was probably related to ischemia . Now the patient is improving after angioplasty. PLAN: To continue present therapy. Instructions was given to the patient about diet and followup an d to stop smoking, lose weight and exercise. Will follow. Mare Gomez MD cc: [id number] TT: 03/02/2017 19:19:16 Confirmation # [id number] Dictation # [id number]
== END 2017-03-02 16:29 | disposition home or self-care (01) | DRG 247 ==
LOC: ED 11:44 → CATH 12:22 → CCU 14:00 → 2RSO 03-01 18:40
PROVIDERS: ADMIT Internal Medicine; ATTEND Internal Medicine
PROC: 027136Z Dilation of Coronary Artery, Two Arteries with Three Drug-eluting Intraluminal Devices, Percutaneous Approach (ICD-10-PCS; principal; 2017-02-28)
PROC: 4A023N7 Measurement of Cardiac Sampling and Pressure, Left Heart, Percutaneous Approach (ICD-10-PCS; 2017-02-28)
PROC: B211YZZ Fluoroscopy of Multiple Coronary Arteries using Other Contrast (ICD-10-PCS; 2017-02-28)
PROC: B215YZZ Fluoroscopy of Left Heart using Other Contrast (ICD-10-PCS; 2017-02-28)
PROC: 3E033PZ Introduction of Platelet Inhibitor into Peripheral Vein, Percutaneous Approach (ICD-10-PCS; 2017-02-28)
DX: I21.09 ST elevation (STEMI) myocardial infarction involving other coronary artery of anterior wall (principal); E11.40 Type 2 diabetes mellitus with diabetic neuropathy, unspecified; E11.65 Type 2 diabetes mellitus with hyperglycemia; I25.10 Atherosclerotic heart disease of native coronary artery without angina pectoris; E66.9 Obesity, unspecified; E78.5 Hyperlipidemia, unspecified; F17.200 Nicotine dependence, unspecified, uncomplicated; I10 Essential (primary) hypertension; I25.5 Ischemic cardiomyopathy; Z91.14 Patient's other noncompliance with medication regimen; Z91.19 Patient's noncompliance with other medical treatment and regimen; Z82.49 Family history of ischemic heart disease and other diseases of the circulatory system; Z82.3 Family history of stroke; Z82.0 Family history of epilepsy and other diseases of the nervous system; R40.2412 Glasgow coma scale score 13-15, at arrival to emergency department; E78.1 Pure hyperglyceridemia; E78.00 Pure hypercholesterolemia, unspecified; G47.00 Insomnia, unspecified